=== PATIENT | female | born 1945 | race Caucasian/White ===

== ENCOUNTER → 2017-07-04 | Outpatient (CLI) | payer MEDICARE ==
--- NOTE | 2017-07-06 09:59 | P.ARTDOP ---
Arterial Doppler LOWER EXTREMITY ARTERIAL DOPPLER: DATE OF SERVICE: 07/04/2017 Reason for study: Abnormal lifeline screening. Doppler waveforms: Multiphasic bilaterally throughout. Pulse volume recording: Mild blunting throughout. Pressure gradients: Below the knee bilaterally. Ankle-brachial indices: 0.76 on the right and 0.77 on the left. Toe pressures: 33 on the right, 38 on the left Impression: Normal proximally. Decreased ankle and toe pressures suspicious for infrapopliteal disease. Only of clinical significance if symptoms exist. Fairly typical of diabetic disease. Recommend close follow-up on foot care..
== END | disposition home or self-care (01) ==
LOC: RADUSWWP 12:53
PROVIDERS: ATTEND Family Medicine
DX: R93.6 Abnormal findings on diagnostic imaging of limbs (principal)
CPT/HCPCS: 93923

== ENCOUNTER → 2017-08-31 | Outpatient (CLI) | payer MEDICARE ==
--- NOTE | 2017-09-01 07:37 | XR ---
EXAMINATION TYPE: XR knee complete LT DATE OF EXAM: 08/31/2017 CLINICAL HISTORY: Left knee pain for one week with no known injury TECHNIQUE: Three views of the left knee are obtained. COMPARISON: None. FINDINGS: There is no acute fracture/dislocation evident in left knee [place] bone or hardware as the re is a total left knee arthroplasty noted with minimal heterotopic ossification posteriorly. No per iprosthetic lucency is seen. The tri-compartment joint spaces appear within normal limits. The overl ju[place]ino soft tissue appears unremarkable. Mild atherosclerosis is incidentally noted. IMPRESSION: There is no acute fracture or dislocation in the left knee.
--- NOTE | 2017-09-01 07:58 | XR ---
EXAMINATION TYPE: XR lumbosacral spine min 4V DATE OF EXAM: 08/31/2017 CLINICAL HISTORY: Pain for one week with no known injury TECHNIQUE: Frontal, lateral, and oblique images of the lumbar spine are obtained. COMPARISON: None FINDINGS: There are 5 lumbar type vertebral bodies identified. The lumbar spine shows satisfactory vertebral body heights. There are moderate multilevel degenerative changes of the lumbar spine displa yed as endplate sclerosis, Schmorl's nodes, anterior osteophytes, intervertebral disc space narrowing and facet arthropathy. There is very mild retrolisthesis of L1 on L2. Remainder of the alignment of the lumbar spine is maintained. The oblique images demonstrate multilevel radiographic neural foramin al narrowing at least moderate at L2-L4 bilaterally. Moderate atherosclerosis of the abdominal aorta is noted. The overlying soft tissue appears unremarkable. Possible right renal calculi versus calcifi cations within bowel are seen within the right upper quadrant measuring 2 mm, 4 mm, and 9 mm. IMPRESSION: 1. No acute fracture is seen in the lumbar spine. 2. Moderate multilevel degenerative changes of the thoracic spine resulting in multilevel neural fora efraín narrowing as described above. Additional retrolisthesis of L1 on L2 is likely on a degenerative basis. 3. Possible right-sided nephrolithiasis.
== END | disposition home or self-care (01) ==
LOC: RADXRYALE 15:57
PROVIDERS: ATTEND Physician Assistant Medical
DX: M99.73 Connective tissue and disc stenosis of intervertebral foramina of lumbar region (principal); M43.16 Spondylolisthesis, lumbar region; M25.562 Pain in left knee
CPT/HCPCS: 72110

== ENCOUNTER 2017-09-01 10:44 | Emergency (ER) | payer MEDICARE ==
[2017-09-01 10:51] VITALS: RESP 18
--- NOTE | 2017-09-01 12:06 | ED ---
Lower Extremity Injury HPI - General Chief Complaint: Extremity Injury, Lower Stated Complaint: LEFT LEG PAIN Time Seen by Provider: 09/01/17 10:55 Source: patient, RN notes reviewed Mode of arrival: wheelchair Limitations: no limitations - History of Present Illness Initial Comments: This is a 72-year-old female presents emergency Department chief complaint of left leg pain. She states has been present since last week has seen her primary care physician and 2 separate occasions and which she initially was given [place] 5/325 and then up to 10/325. Patient states that she was also given a shot of steroids, oral steroids. She states that the pain starts from her left hip region and rates only down. She states worst pain seems to be from her knee down. She has had x-rays of her left knee, hip region which were unremarkable. Patient denies any history of DVT denies any leg swelling, leg discoloration. Patient states that nothing seems to make the pain feel better states that certain movements do make the pain worse. Patient denies any bowel bladder incontinence or retention. Denies any abdominal pain - Related Data Home Medications Medication Instructions Recorded Confirmed Aspirin EC [Ecotrin Low Dose] 81 mg PO DAILY 09/01/17 09/01/17 Calcium Carbonate [Calcium] 600 mg PO BID 09/01/17 09/01/17 Cholecalciferol [Vitamin D3] 1,000 unit PO DAILY 09/01/17 09/01/17 Cyanocobalamin (Vitamin B-12) 1,000 mcg PO DAILY 09/01/17 09/01/17 [Vitamin B-12] Fish Oil/Dha/Epa [Fish Oil 1,200 1 cap PO BID 09/01/17 09/01/17 mg Fish Oil] HYDROcodone/APAP 10-325MG [[place] 1 tab PO TID PRN 09/01/17 09/01/17 10-325] Hydrochlorothiazide [Hydrodiuril] 25 mg PO DAILY 09/01/17 09/01/17 Lisinopril [Zestril] 20 mg PO BID 09/01/17 09/01/17 Melatonin 10 mg PO HS 09/01/17 09/01/17 Multivit-Min/FA/Lycopen/Lutein 1 tab PO DAILY 09/01/17 09/01/17 [Centrum Silver Tablet] Pioglitazone [Actos] 15 mg PO DAILY 09/01/17 09/01/17 Vitamin E 1,000 unit PO DAILY 09/01/17 09/01/17 glipiZIDE [Glucotrol XL] 10 mg PO BID 09/01/17 09/01/17 predniSONE See Taper PO DAILY 09/01/17 09/01/17 Previous Rx's Medication Instructions Recorded Cyclobenzaprine [Flexeril] 10 mg PO TID PRN #15 tab 09/01/17 Allergies Allergy/AdvReac Type Severity Reaction Status Date / Time No Known Allergies Allergy Verified 09/01/17 11:03 Review of Systems ROS Statement: Those systems with pertinent positive or pertinent negative responses have been documented in the HPI. ROS Other: All systems not noted in ROS Statement are negative. Past Medical History Past Medical History: Diabetes Mellitus, Hypertension History of Any Multi-Drug Resistant Organisms: None Reported Past Surgical History: Orthopedic Surgery Past Psychological History: No Psychological Hx Reported Smoking Status: Never smoker Past Alcohol Use History: None Reported Past Drug Use History: None Reported General Exam Limitations: no limitations General appearance: alert, in no apparent distress Neck exam: Present: normal inspection, full ROM. Absent: tenderness, meningismus, lymphadenopathy Respiratory exam: Present: normal lung sounds bilaterally. Absent: respiratory distress, wheezes, rales, rhonchi, stridor Cardiovascular Exam: Present: regular rate, normal rhythm, normal heart sounds. Absent: systolic murmur, diastolic murmur, rubs, gallop, clicks GI/Abdominal exam: Present: soft, normal bowel sounds. Absent: distended, tenderness, guarding, rebound, rigid Extremities exam: Present: other (Lower extremity pulses equal bilaterally 2+, there is no swelling no erythema no discoloration lower extremities equal warmth there is no pain with range of motion of left ankle, left knee and left hip. Patient has pain when she goes from a laying to sitting position she feels pain towards her left thigh, left hip region) Back exam: Present: normal inspection, full ROM. Absent: tenderness Neurological exam: Present: reflexes normal. Absent: motor sensory deficit Skin exam: Present: warm, dry, intact, normal color. Absent: rash Course Vital Signs 09/01/17 10:50 Temperature 98.2 F Pulse Rate 96 Respiratory 18 Rate Blood Pressure 131/73 O2 Sat by Pulse 98 Oximetry Medical Decision Making - Medical Decision Making 72-year-old female presented emergency department for left leg pain. Patient has lumbar radiculopathy type symptoms. Patient had CT of her lumbar spine shows severe spinal stenosis, discoloration. Patient does not have any bowel, bladder incontinence or retention. Patient will follow-up with on-call orthopedic surgeon Dr. Tao. Patient currently has [place] . Patient we given a muscle relaxer. Patient also has steroids at home. Disposition Clinical Impression: Lumbar radiculopathy, Spinal stenosis of lumbar region, Lumbar disc herniation Disposition: HOME SELF-CARE Condition: Stable Instructions: Lumbar Spinal Stenosis (ED), Lumbar Radiculopathy (ED) Additional Instructions: Please return to the Emergency Department if symptoms worsen or any other concerns. Prescriptions: Cyclobenzaprine [Flexeril] 10 mg PO TID PRN #15 tab PRN Reason: Muscle Spasm Is patient prescribed a controlled substance at d/c from ED?: No Referrals: Mykel Marin DO [Primary Care Provider] - 1-2 days Sam Tao DO [Doctor of Osteopathic Medicine] - 1-2 days Time of Disposition: 12:50
--- NOTE | 2017-09-01 12:16 | US ---
EXAMINATION TYPE: US venous doppler duplex LE LT DATE OF EXAM: 09/01/2017 11:16 AM COMPARISON: NONE CLINICAL HISTORY: Pain. Pt states left leg/hip pain post steroid injection SIDE PERFORMED: Left TECHNIQUE: The lower extremity deep venous system is examined utilizing real time linear array sonog jerry with graded compression, doppler sonography and color-flow sonography. VESSELS IMAGED: External Iliac Vein (EI) Common Femoral Vein Deep Femoral Vein Greater Saphenous Vein * Femoral Vein Popliteal Vein Small Saphenous Vein * Proximal Calf Veins (* superficial vessels) Large pt body habitus, somewhat difficult exam Left Leg: Negative for DVT IMPRESSION: 1. No diagnostic evidence of DVT as visualized.
--- NOTE | 2017-09-01 12:20 | CT ---
EXAMINATION TYPE: CT lumbar spine wo con DATE OF EXAM: 09/01/2017 11:47 AM COMPARISON: NONE HISTORY: Left leg pain CT DLP: 1916 mGycm Automated exposure control for dose reduction was used. Unenhanced CT of the lumbar spine was performed. Bone and soft tissue window settings are submitted as well as coronal and sagittal reconstructions. FINDINGS: Vertebral bodies maintain normal vertebral body heights and alignment. Posterior osteophyte s project from the L1-L2 and L2-L3 vertebrae into the spinal canal. Multilevel anterior osteophytes a re also seen. Schmorl's node is present of the superior endplate of L3. Multilevel endplate sclerosis and facet arthropathy as well as intervertebral disc space narrowing are seen. There is moderate ath erosclerosis of the abdominal aorta and its branches. L1-L2: There is a broad-based disc bulge and minimal facet arthropathy with posterior disc osteophyte complex creating moderate spinal canal stenosis and mild bilateral neural foraminal narrowing. L2-L3: There is a protuberant posterior osteophytes in combination with a central disc herniation mary jane t create moderate to severe spinal canal stenosis and mild to moderate bilateral neural foraminal anastacia rowing. L3-L4: There is a broad-based disc bulge and facet arthropathy that create mild bilateral neural fora efraín narrowing and mild spinal canal stenosis. L4-L5: There is a broad-based disc bulge, facet arthropathy and ligamentum flavum hypertrophy that cr eate moderate spinal canal stenosis and moderate bilateral neural foraminal narrowing. L5-S1: There is a broad-based disc bulge, facet arthropathy and ligamentum flavum buckling that creat e mild bilateral neural foraminal narrowing without significant spinal canal stenosis. Additionally t here is suspicion for a left paracentral disc herniation although this would be better evaluated with MRI. IMPRESSION: 1. No evidence of vertebral body height loss or malalignment of the lumbar spine. No evidence of acut e fracture. 2. Multilevel degenerative disc disease resulting in severe spinal canal stenosis at L2-L3, mild spin al canal stenosis at L3-L4, and moderate spinal canal stenosis at L4-L5 as well as at L1-L2. Multilev el variable degree neural foraminal narrowing is also seen as described above. 3. Central disc herniation at L2-L3 and suspected left paracentral disc herniation at L5-S1 that woul d be better characterized with MRI.
[2017-09-01] MEDS ORDERED: HYDROmorphone 0.5 MG/0.5 ML SYRINGE IM STA (12:47)
[2017-09-01 13:45] VITALS: BP 140/73; PULSE 89; TEMP 98.2
== END 2017-09-01 13:43 | disposition home or self-care (01) ==
LOC: EC 10:44
DX: M48.061 Spinal stenosis, lumbar region without neurogenic claudication (principal); M79.605 Pain in left leg; M51.16 Intervertebral disc disorders with radiculopathy, lumbar region; E11.9 Type 2 diabetes mellitus without complications; I10 Essential (primary) hypertension; Z79.82 Long term (current) use of aspirin; Z79.52 Long term (current) use of systemic steroids; Z79.84 Long term (current) use of oral hypoglycemic drugs; Z79.899 Other long term (current) drug therapy
CPT/HCPCS: 99283 ×2; 96372 ×2; 93971; 72131; J1170

== ENCOUNTER 2019-01-28 10:53 | Emergency (ER) | payer MEDICARE, OTHER ==
[2019-01-28 11:11] VITALS: BP 134/66; PULSE 109; RESP 18; TEMP 98.8
[2019-01-28] MEDS ORDERED: KETOROLAC 30 MG/ML 1 ML VIAL IM STA (11:42)
--- NOTE | 2019-01-28 11:49 | ED ---
Back Pain HPI - General Chief Complaint: Back Pain/Injury Stated Complaint: sciatic nerve pain Time Seen by Provider: 01/28/19 11:11 Source: patient Limitations: no limitations - History of Present Illness Initial Comments: Patient is a 74-year-old female, with past medical history of hypertension and diabetes, presenting to the emergency Department with complaints of right sided sciatica-type symptoms times one week. Patient states she has had sciatica in the past on the left side and states this feels the same. Patient denies any injuries or trauma to her low back or leg. Patient states this started approximately one week ago after she was pushing a coffee table. Patient states she did go to her PCP who gave her [place]'s for pain relief over they are not working. Patient states her pain has been increasing and she is having trouble sleeping. Patient is also tried heat to the area and massage without relief of symptoms. Patient's describes the pain as starting in her right buttocks and traveling down to her leg. Patient states at times she feels pain into her right toes. Patient denies any fever, chills, saddle paresthesias, urinary incontinence. Patient has no other complaints at this time. Upon arrival to the ER, vital signs are stable. - Related Data Home Medications Medication Instructions Recorded Confirmed Aspirin EC [Ecotrin Low Dose] 81 mg PO DAILY 09/01/17 09/01/17 Calcium Carbonate [Calcium] 600 mg PO BID 09/01/17 09/01/17 Cholecalciferol [Vitamin D3] 1,000 unit PO DAILY 09/01/17 09/01/17 Cyanocobalamin (Vitamin B-12) 1,000 mcg PO DAILY 09/01/17 09/01/17 [Vitamin B-12] Fish Oil/Dha/Epa [Fish Oil 1,200 1 cap PO BID 09/01/17 09/01/17 mg Fish Oil] HYDROcodone/APAP 10-325MG [[place] 1 tab PO TID PRN 09/01/17 09/01/17 10-325] Hydrochlorothiazide [Hydrodiuril] 25 mg PO DAILY 09/01/17 09/01/17 Lisinopril [Zestril] 20 mg PO BID 09/01/17 09/01/17 Melatonin 10 mg PO HS 09/01/17 09/01/17 Multivit-Min/FA/Lycopen/Lutein 1 tab PO DAILY 09/01/17 09/01/17 [Centrum Silver Tablet] Pioglitazone [Actos] 15 mg PO DAILY 09/01/17 09/01/17 Vitamin E 1,000 unit PO DAILY 09/01/17 09/01/17 glipiZIDE [Glucotrol XL] 10 mg PO BID 09/01/17 09/01/17 predniSONE See Taper PO DAILY 09/01/17 09/01/17 Previous Rx's Medication Instructions Recorded Cyclobenzaprine [Flexeril] 10 mg PO TID PRN #15 tab 09/01/17 Cyclobenzaprine [Flexeril] 5 mg PO BID #10 tablet 01/28/19 methylPREDNISolone [Medrol Dose 4 mg PO DIRECTED #1 pack 01/28/19 Pack] Allergies Allergy/AdvReac Type Severity Reaction Status Date / Time No Known Allergies Allergy Verified 09/01/17 11:03 Review of Systems ROS Statement: Those systems with pertinent positive or pertinent negative responses have been documented in the HPI. ROS Other: All systems not noted in ROS Statement are negative. Past Medical History Past Medical History: Diabetes Mellitus, Hypertension History of Any Multi-Drug Resistant Organisms: None Reported Past Surgical History: Orthopedic Surgery Past Psychological History: No Psychological Hx Reported Smoking Status: Never smoker Past Alcohol Use History: None Reported Past Drug Use History: None Reported General Exam - General Exam Comments Initial Comments: GENERAL: Well-appearing, well-nourished and in no acute distress, but appears uncomfortable. HEAD: Atraumatic, normocephalic. EYES: Pupils equal round and reactive to light, extraocular movements intact, sclera anicteric, conjunctiva are normal. ENT: Moist mucous membranes. NECK: Normal range of motion, supple without lymphadenopathy or JVD. LUNGS: Breath sounds clear to auscultation bilaterally and equal. No wheezes rales or rhonchi. HEART: Regular rate and rhythm without murmurs, rubs or gallops. ABDOMEN: Soft, nontender, normoactive bowel sounds. No guarding, no rebound. No masses appreciated. EXTREMITIES: Pain with palpation in the right gluteal, sciatic nerve area, increase in symptoms when palpated. Patient has positive straight leg rate test. Normal range of motion of the right hip and trunk. Sensation is equal and bilateral. Patient has 5 out of 5 strength to lower extremities. NEUROLOGICAL: Cranial nerves II through XII grossly intact. Normal speech. PSYCH: Normal mood, normal affect. SKIN: Warm, Dry, normal turgor, no rashes or lesions noted. Limitations: no limitations Course Vital Signs 01/28/19 11:09 Temperature 98.8 F Pulse Rate 109 H Respiratory 18 Rate Blood Pressure 134/66 O2 Sat by Pulse 98 Oximetry Medical Decision Making - Medical Decision Making Patient is a 74-year-old female presenting with right-sided sciatica for one week. Patient denies any injuries or trauma. Patient states she has had this on the left side before and this feels similar. Patient has been taking [place]'s for pain relief however they've not been helping. Patient will be given pain shot of Toradol today be started on steroids as well as a small dose of a muscle relaxer to help with symptoms. Patient will continue with heat to the area as well as gentle massage. Patient is in agreement with this plan of care and is stable for discharge at this time. Return parameters were discussed with the patient she verbalized understanding. Patient will follow up with PCP this week if symptoms persist. Case discussed with Dr. Deleon. Disposition Clinical Impression: Right sided sciatica Disposition: HOME SELF-CARE Condition: Stable Instructions (If sedation given, give patient instructions): Sciatica (ED) Additional Instructions: Please return to the Emergency Department if symptoms worsen or any other daljit rns. Take steroids and muscle relaxer as prescribed. Continue with heat and gentle massage to the area. May continue with [place] or Tylenol for pain relief. Follow-up with PCP next week if symptoms persist. Prescriptions: Cyclobenzaprine [Flexeril] 5 mg PO BID #10 tablet methylPREDNISolone [Medrol Dose Pack] 4 mg PO DIRECTED #1 pack Is patient prescribed a controlled substance at d/c from ED?: No Referrals: Mykel Marin DO [Primary Care Provider] - 1-2 days
== END 2019-01-28 12:06 | disposition home or self-care (01) ==
LOC: EC 10:53
DX: M54.31 Sciatica, right side (principal); E11.9 Type 2 diabetes mellitus without complications; I10 Essential (primary) hypertension; Z79.52 Long term (current) use of systemic steroids; Z79.82 Long term (current) use of aspirin; Z79.84 Long term (current) use of oral hypoglycemic drugs; Z79.899 Other long term (current) drug therapy
CPT/HCPCS: 99283; 96372; J1885

== ENCOUNTER 2020-01-05 19:42 | Inpatient (IN) | payer MEDICARE, OTHER ==
--- NOTE | 2020-01-05 20:13 | ED ---
Arrhythmia/Palpitations HPI - General Chief Complaint: Arrhythmia/Palpitations Stated Complaint: sob, heart palpitations Time Seen by Provider: 01/05/20 19:54 Source: patient, family, RN notes reviewed Mode of arrival: wheelchair Limitations: no limitations - History of Present Illness Initial Comments: This is a 74-year-old female with no prior history of heart disease that she is aware of who states she had the onset this morning at about 7:00 of a racing heart rate was resolved quickly she has sec so later today and then around 6:30 PM tonight had another episode which is persistent. She has slight shortness of breath no chest pain fevers chills sweats no recent cold or flu symptoms no recent travel no known medication with history of thyroid disease no other complaints or modifying factors MD Complaint: rapid heart beat, "heart racing" - Related Data Home Medications Medication Instructions Recorded Confirmed Aspirin EC [Ecotrin Low Dose] 81 mg PO DAILY 09/01/17 09/01/17 Calcium Carbonate [Calcium] 600 mg PO BID 09/01/17 09/01/17 Cholecalciferol [Vitamin D3] 1,000 unit PO DAILY 09/01/17 09/01/17 Cyanocobalamin (Vitamin B-12) 1,000 mcg PO DAILY 09/01/17 09/01/17 [Vitamin B-12] Fish Oil/Dha/Epa [Fish Oil 1,200 1 cap PO BID 09/01/17 09/01/17 mg Fish Oil] HYDROcodone/APAP 10-325MG [[place] 1 tab PO TID PRN 09/01/17 09/01/17 10-325] Melatonin 10 mg PO HS 09/01/17 09/01/17 Multivit-Min/FA/Lycopen/Lutein 1 tab PO DAILY 09/01/17 09/01/17 [Centrum Silver Tablet] Pioglitazone [Actos] 15 mg PO DAILY 09/01/17 09/01/17 Vitamin E 1,000 unit PO DAILY 09/01/17 09/01/17 glipiZIDE [Glucotrol XL] 10 mg PO BID 09/01/17 09/01/17 hydroCHLOROthiazide [Hydrodiuril] 25 mg PO DAILY 09/01/17 09/01/17 lisinopriL [Zestril] 20 mg PO BID 06/21/18 06/21/18 predniSONE See Taper PO DAILY 09/01/17 09/01/17 Previous Rx's Medication Instructions Recorded Cyclobenzaprine [Flexeril] 10 mg PO TID PRN #15 tab 09/01/17 Cyclobenzaprine [Flexeril] 5 mg PO BID #10 tablet 01/28/19 methylPREDNISolone [Medrol Dose 4 mg PO DIRECTED #1 pack 01/28/19 Pack] Allergies Allergy/AdvReac Type Severity Reaction Status Date / Time No Known Allergies Allergy Verified 01/05/20 19:48 Review of Systems ROS Statement: Those systems with pertinent positive or pertinent negative responses have been documented in the HPI. ROS Other: All systems not noted in ROS Statement are negative. Past Medical History Past Medical History: Diabetes Mellitus, Hypertension History of Any Multi-Drug Resistant Organisms: None Reported Past Surgical History: Orthopedic Surgery Past Psychological History: No Psychological Hx Reported Smoking Status: Never smoker Past Alcohol Use History: None Reported Past Drug Use History: None Reported General Exam - General Exam Comments Initial Comments: This is a well-developed well-nourished awake alert oriented 3 female Limitations: no limitations General appearance: alert, anxious Head exam: Present: atraumatic, normocephalic, normal inspection Eye exam: Present: normal appearance, PERRL, EOMI. Absent: scleral icterus, conjunctival injection, periorbital swelling ENT exam: Present: normal exam, mucous membranes moist Neck exam: Present: normal inspection, full ROM, other (No stridor JVD or bruits). Absent: tenderness, meningismus, lymphadenopathy Respiratory exam: Present: normal lung sounds bilaterally. Absent: respiratory distress, wheezes, rales, rhonchi, stridor Cardiovascular Exam: Present: normal rhythm, tachycardia, normal heart sounds. Absent: systolic murmur, diastolic murmur, rubs, gallop, clicks GI/Abdominal exam: Present: soft, normal bowel sounds. Absent: distended, tenderness, guarding, rebound, rigid Extremities exam: Present: normal inspection, full ROM, normal capillary refill. Absent: tenderness, pedal edema, joint swelling, calf tenderness Back exam: Present: normal inspection Neurological exam: Present: alert, oriented X3, CN II-XII intact Psychiatric exam: Present: normal affect, normal mood Skin exam: Present: warm, dry, intact, normal color. Absent: rash Course Vital Signs 01/05/20 19:44 Temperature 97.9 F Pulse Rate 108 H Respiratory 20 Rate Blood Pressure 175/64 O2 Sat by Pulse 99 Oximetry - Reevaluation(s) Reevaluation #1: 01/05/20 20:37 The patient was instructed to perform a vagal maneuver this was successful and improving her heart rate down to approximately 110 from 165 Reevaluation #2: 01/05/20 20:52 After the vagal episode repeat EKG showed a sinus rhythm a 93. Interval 194 QRS 80 QT since QTC 332/412 evidence of LVH possible left atrial enlargement Reevaluation #3: 01/05/20 20:52 Reevaluation patient revealed that she did return to supraventricular tachycardia another vagal maneuver was attempted. This did not accomplish the slowing of the heart. Patient was then given 6 mg of adenosine. This did change the rhythm to a sinus rhythm with a beat of about 110 however within about a minute the patient return to SVT with a heart rate in the 160s. Patient will be started on a Cardizem drip. Reevaluation #4: 01/05/20 21:08 The patient did spontaneously resolve into sinus rhythm. She'll be started on a Cardizem drip. EKG Findings - EKG Results: EKG: interpreted by ERMD (Evidence of supraventricular tachycardia with fusion complexes artifact QRS 98 QT /QTC 260/430. Nonspecific ST configuration incomplete right bundle-branch block.) Medical Decision Making - Lab Data Result diagrams: 01/05/20 20:06 01/05/20 20:06 Lab Results 01/05/20 01/05/20 01/05/20 Range/Units 20:06 20:06 20:06 WBC 10.5 (3.8-10.6) k/uL RBC 4.54 (3.80-5.40) m/uL Hgb 13.5 (11.4-16.0) gm/dL Hct 41.9 (34.0-46.0) % MCV 92.2 (80.0-100.0) fL MCH 29.8 (25.0-35.0) pg MCHC 32.3 (31.0-37.0) g/dL RDW 13.0 (11.5-15.5) % Plt Count 209 (150-450) k/uL Neutrophils % 80 % Lymphocytes % 12 % Monocytes % 6 % Eosinophils % 0 % Basophils % 0 % Neutrophils # 8.5 H (1.3-7.7) k/uL Lymphocytes # 1.2 (1.0-4.8) k/uL Monocytes # 0.7 (0-1.0) k/uL Eosinophils # 0.0 (0-0.7) k/uL Basophils # 0.0 (0-0.2) k/uL PT 9.6 (9.0-12.0) sec INR 0.9 (<1.2) APTT 18.7 L (22.0-30.0) sec D-Dimer 0.36 (<0.60) mg/L FEU Sodium 138 (137-145) mmol/L Potassium 4.7 (3.5-5.1) mmol/L Chloride 103 (98-107) mmol/L Carbon Dioxide 27 (22-30) mmol/L Anion Gap 8 mmol/L BUN 44 H (7-17) mg/dL Creatinine 1.38 H (0.52-1.04) mg/dL Est GFR (CKD-EPI)AfAm 43 (>60 ml/min/1.73 sqM) Est GFR (CKD-EPI)NonAf 37 (>60 ml/min/1.73 sqM) Glucose 335 H (74-99) mg/dL Calcium 9.6 (8.4-10.2) mg/dL Magnesium 1.8 (1.6-2.3) mg/dL Total Bilirubin 0.6 (0.2-1.3) mg/dL AST 23 (14-36) U/L ALT 24 (4-34) U/L Alkaline Phosphatase 107 (38-126) U/L Creatine Kinase 35 (30-135) U/L Total Protein 7.0 (6.3-8.2) g/dL Albumin 4.3 (3.5-5.0) g/dL TSH 0.605 (0.465-4.680) mIU/L Critical Care Time Critical Care Time: Yes Total Critical Care Time: 37 Critical Care Time: 37 minutes of critical care time which includes initial presentation with history physical labs x-rays multiple reevaluation the patient including the attempted chemical conversion with Cardizem. Multiple discussions the patient family discuss with the admitting service admission orders and documentation of the above Disposition Clinical Impression: Paroxysmal supraventricular tachycardia, Hypomagnesemia syndrome Disposition: ADMITTED IP TO THIS HOSP Condition: Fair Referrals: Mykel Marin DO [Primary Care Provider] - 1-2 days
[2020-01-05 20:18] LABS: Basophils % (A) 0 %; Eosinophils % (A) 0 %; HCT 41.9 % (34.0-46.0); HGB 13.5 gm/dL (11.4-16.0); Lymphocytes # (A) 1.2 k/uL (1.0-4.8); Lymphocytes % (A) 12 %; MCH 29.8 pg (25.0-35.0); MCHC 32.3 g/dL (31.0-37.0); MCV 92.2 fL (80.0-100.0); Mean Platelet Volume 7.7; Monocytes # (A) 0.7 k/uL (0-1.0); Monocytes % (A) 6 %; Neutrophils # (A) 8.5 k/uL (1.3-7.7); Neutrophils % (A) 80 %; Platelet Count 209 k/uL (150-450); RBC 4.54 m/uL (3.80-5.40); WBC 10.5 k/uL (3.8-10.6)
[2020-01-05 20:30] LABS: Albumin 4.3 g/dL (3.5-5.0); Calcium 9.6 mg/dL (8.4-10.2); Magnesium 1.8 mg/dL (1.6-2.3); Potassium 4.7 mmol/L (3.5-5.1); Total Bilirubin 0.6 mg/dL (0.2-1.3)
--- NOTE | 2020-01-05 20:40 | XR ---
EXAMINATION TYPE: XR chest 2V DATE OF EXAM: 01/05/2020 COMPARISON: NONE HISTORY: Dysrhythmia TECHNIQUE: 2 views FINDINGS: Heart and mediastinum are within normal limits for age. Lungs are clear. Diaphragm is lara l. Bony thorax is intact. IMPRESSION: No active cardiopulmonary disease.
[2020-01-05] MEDS ORDERED: ADENOSINE 3 MG/ML 2 ML VIAL IVP STA (20:49)
[2020-01-05] MEDS ORDERED: DILTIAZEM DRIP BOLUS FROM BAG 1 MG SOLN IV ONE (20:50)
[2020-01-05] MEDS ORDERED: MAGNESIUM SULFATE-D5W PMX 1 GM in DEXTROSE/WATER 1 100ML.BAG IVPB ONE (20:50)
[2020-01-05] MEDS ORDERED: DILTIAZEM 125 MG in SODIUM CHLORIDE 0.9% 100 ML IV SCH (21:00)
[2020-01-05 21:04] LABS: D-Dimer 0.36 mg/L FEU (<0.60); INR 0.9 (<1.2); Prothrombin Time 9.6 sec (9.0-12.0)
[2020-01-05 21:06] LABS: Partial Thromboplastin Time 18.7 sec (22.0-30.0)
[2020-01-05] MEDS ORDERED: NALOXONE 0.4 MG/ML 1 ML VIAL IV PRN (21:09)
[2020-01-05] MEDS ORDERED: CYCLOBENZAPRINE 10 MG TAB PO PRN (21:12)
[2020-01-05] MEDS ORDERED: HYDROcodone/APAP 10-325MG 1 EACH TAB PO PRN (21:12)
[2020-01-05 21:15] VITALS: RESP 18
[2020-01-05] MEDS ORDERED: SODIUM CHLORIDE 0.9% 1,000 ML IV SCH (21:15)
[2020-01-06 06:24] LABS: Glucose,Whole Blood 56 mg/dL (75-99)
[2020-01-06] MEDS ORDERED: DEXTROSE 50% SYRINGE 50 ML IVP ONE (06:24)
[2020-01-06 06:50] LABS: Glucose,Whole Blood 190 mg/dL (75-99)
[2020-01-06] MEDS ORDERED: glipiZIDE 10 MG TAB PO SCH (07:30)
[2020-01-06] MEDS ORDERED: CALCIUM CARB-VIT D 500MG-200UN 1 EACH TAB PO SCH (07:30)
[2020-01-06] MEDS ORDERED: lisinopriL 20 MG TAB PO SCH (09:00)
[2020-01-06] MEDS ORDERED: PIOGLITAZONE 15 MG TAB PO SCH (09:00)
[2020-01-06] MEDS ORDERED: CYANOCOBALAMIN 500 MCG TAB PO SCH (09:00)
[2020-01-06] MEDS ORDERED: NON FORMULARY DRUG (Fish Oil/Dha/Epa [Fish Oil 1,200 Mg Fish Oil] 1 EACH Capsule) PO SCH (09:00)
[2020-01-06] MEDS ORDERED: MULTIVITAMINS, THERA 1 EACH TAB PO SCH (09:00)
[2020-01-06] MEDS ORDERED: VITAMIN E (DL,TOCOPHERYL ACET) 400 UNIT CAP PO SCH (09:00)
[2020-01-06] MEDS ORDERED: ASPIRIN 81 MG PO SCH (09:00)
[2020-01-06] MEDS ORDERED: hydroCHLOROthiazide 25 MG TAB PO SCH (09:00)
[2020-01-06] MEDS ORDERED: CHOLECALCIFEROL 1,000 UNIT TAB PO SCH (09:00)
[2020-01-06] MEDS ORDERED: VERAPAMIL 80 MG TAB PO SCH (10:00)
[2020-01-06 10:08] VITALS: TEMP 97.6
--- NOTE | 2020-01-06 10:56 | P.CRDCN ---
History of Present Illness Consult date: 01/06/20 Reason for Consult (text): "Racing heart" and palpitations Chief complaint: Racing heart / paplitations History of present illness: HISTORY OF PRESENT ILLNESS AND PLAN: This is a 75-year-old female with history of obesity, bilateral knee replacement, osteoarthritis of bilateral hips with steroid injections, DM 2, hypertension, hyperlipidemia and recent complaints of racing heart/palpitations. Patient examined this a.m. in no acute distress and is completely alert and oriented. Patient states yesterday morning she began to feel racing heart/palpitations and it persisted to the evening hours. Patient has no current complaints of chest pain, chest pressure or shortness of breath. No lower extremity edema. Patient has never followed with cardiology historically. EKG in ER shows SVT with heart rate of 165. Patient currently sinus rhythm, heart rate 66. VSS, 98% on RA. Afebrile. Troponin's negative 3. Glucose levels 335, Pt currently on oral steroids for OA of the hips. Magnesium 1.8, replaced. TSH borderline elevation at 0.605 and pt takes no thyroid supplementation. No smoking hx. Pt given adenosine and started on Cardizem IV @ 5ml in ER. Pt follows with Dr. Em. SIGNIFICANT PAST MEDICAL HISTORY: Obesity, bilateral knee replacement, osteoarthritis of bilateral hips with steroid injections, DM 2, hypertension, hyperlipidemia and recent complaints of racing heart/palpitations. PAST SURGICAL HISTORY: See list. EKG = SVT, HR 165. Currently SR, HR 66 Troponins negative x 3 SIGNIFICANT LABORATORY VALUES: Mag 1.8. Glucose 335. TSH 0.605. BUN 44 CR 1.38 Chest x-ray 01/05/20 = No acute process. Most recent echo = None recently Most recent stress testing = none recently REVIEW OF SYSTEMS: CONSTITUTIONAL: Denies fever. Denies chills. EYES: Denies blurred vision. Denies blurred vision or vision changes. Denies eye pain. EARS, NOSE, MOUTH & THROAT: Denies headache. Denies sore throat. Denies ear pain Denies hemoptysis. CARDIOVASCULAR: Denies chest pain. Denies shortness of breath. Denies orthopnea. Denies PND. Complains of "racing heart" with associated palpitations. RESPIRATORY: Denies cough. Denies shortness of breath. GASTROINTESTINAL: Denies abdominal pain or distention. Denies diarrhea. Denies constipation. Denies nausea. Denies vomiting. MUSCULOSKELETAL: Complains of bilateral hip myalgias. INTEGUMENTARY: Denies pruitis. Denies rash. ENDOCRINE: Denies fatigue. Denies weight change. Denies polydipsia. Denies polyurina Denies heat/cold intolerance. GENITOURINARY: Denies burning, hematuria or urgency with micturation. HEMATOLOGIC: Denies history of anemia. Denies bleeding. NEUROLOGIC: Denies numbness. Denies tingling. Denies weakness. PSYCHIATRIC: Complains of anxiety. Denies depression PHYSICAL EXAM: GENERAL: Obese. Well developed, in no acute distress. HEENT: Head is atraumatic, normocephalic. Pupils are equal, round. Extra ocular movements intact. Mucous membranes moist. Neck supple. No JVD. No carotid bruit. No thyromegaly. LUNGS: Clear to auscultation. No wheezes, rales or rhonchi. No chest wall tenderness on palpation or with deep breathing. HEART: Regular rate and rhythm, no rubs or gallops. S1 and S2 heard. II/ systolic murmur at the base. ABDOMEN: Abdominal exam, WNL. Bowel sounds x4 quads. Soft, non-tender, without masses, organomegaly, or abdominal aorta enlargement. EXTREMITIES/VASCULAR: Extremities have easily palpable radial, femoral, dorsalis pedis and posterior tibial pulses. No cyanosis, calf tenderness. No BLE edema. NEUROLOGIC: Patient is awake, alert and oriented x3. No focal neurologic abnormalities. FINAL IMPRESSION: 1. Paroxysmal SVT 2. Possible underlying CAD 3. Hypertension 4. Hyperlipidemia 5. DM II PLAN: STOP Cardizem IV. START Verapamil 80 mg every 12 hours. Hearth healthy diet. OK from a cardiology to discharge pt later this afternoon after starting Verapamil. Pt to follow-up visit, echocardiogram and outpatient stress testing within the next [address] JUAN MIGUEL Oreilly. OK for DC this afternoon. Nurse Practitioner note has been reviewed by the Physician. Signing provider agrees with the documented findings, assessment and plan of care. Past Medical History Past Medical History: Diabetes Mellitus, Hypertension History of Any Multi-Drug Resistant Organisms: None Reported Past Surgical History: Orthopedic Surgery Past Psychological History: No Psychological Hx Reported Smoking Status: Never smoker Past Alcohol Use History: None Reported Past Drug Use History: None Reported Medications and Allergies Home Medications Medication Instructions Recorded Confirmed Type Aspirin EC [Ecotrin Low Dose] 81 mg PO DAILY 09/01/17 01/05/20 History Cholecalciferol [Vitamin D3] 1,000 unit PO DAILY 09/01/17 01/05/20 History HYDROcodone/APAP 10-325MG [[place] 1 tab PO BID PRN 09/01/17 01/05/20 History 10-325] Melatonin 10 mg PO HS 09/01/17 01/05/20 History glipiZIDE [Glucotrol XL] 10 mg PO DAILY 09/01/17 01/05/20 History hydroCHLOROthiazide [Hydrodiuril] 25 mg PO DAILY 09/01/17 01/05/20 History lisinopriL [Zestril] 20 mg PO BID 09/01/17 01/05/20 History predniSONE See Taper PO DAILY 09/01/17 01/05/20 History Atorvastatin [Lipitor] 10 mg PO DAILY 01/05/20 01/05/20 History Gabapentin 300 mg PO HS 01/05/20 01/05/20 History Pioglitazone [Actos] 30 mg PO DAILY 01/05/20 01/05/20 History metFORMIN HCL [Glucophage] 500 mg PO BID 01/05/20 01/05/20 History Allergies Allergy/AdvReac Type Severity Reaction Status Date / Time No Known Allergies Allergy Verified 01/05/20 21:18 Physical Exam Vitals: Vital Signs Temp Pulse Pulse Resp BP BP Pulse Ox 01/06/20 08:00 97.6 F 86 18 128/67 98 01/06/20 04:00 98 F 66 18 148/86 96 01/06/20 00:00 75 18 01/05/20 21:28 98.2 F 75 18 153/88 95 01/05/20 21:14 84 18 159/69 98 01/05/20 19:44 97.9 F 108 H 20 175/64 99 Intake and Output 01/05/20 01/06/20 01/06/20 22:59 06:59 14:59 Intake Total 380 Balance 380 Intake: Intake, IV Titration 140 Amount Diltiazem 125 mg In 40 Sodium Chloride 0.9% 100 ml @ 5 MG/HR 5 mls/hr IV .Q24H [facility] Rx#:[id number] Sodium Chloride 0.9% 1, 100 000 ml @ 20 mls/hr IV . Q24H [facility] Rx#:[id number] Oral 240 Other: # Voids 3 1 Weight 72.575 kg 86.4 kg Results 01/05/20 20:06 01/05/20 20:06 Cardiac Enzymes 01/05/20 01/05/20 01/05/20 Range/Units 20:06 20:06 22:46 AST 23 (14-36) U/L Troponin I 0.014 0.015 (0.000-0.034) ng/mL 01/06/20 Range/Units 02:05 AST (14-36) U/L Troponin I 0.020 (0.000-0.034) ng/mL Coagulation 01/05/20 Range/Units 20:06 PT 9.6 (9.0-12.0) sec APTT 18.7 L (22.0-30.0) sec CBC 01/05/20 Range/Units 20:06 WBC 10.5 (3.8-10.6) k/uL RBC 4.54 (3.80-5.40) m/uL Hgb 13.5 (11.4-16.0) gm/dL Hct 41.9 (34.0-46.0) % Plt Count 209 (150-450) k/uL Comprehensive Metabolic Panel 01/05/20 Range/Units 20:06 Sodium 138 (137-145) mmol/L Potassium 4.7 (3.5-5.1) mmol/L Chloride 103 (98-107) mmol/L Carbon Dioxide 27 (22-30) mmol/L BUN 44 H (7-17) mg/dL Creatinine 1.38 H (0.52-1.04) mg/dL Glucose 335 H (74-99) mg/dL Calcium 9.6 (8.4-10.2) mg/dL AST 23 (14-36) U/L ALT 24 (4-34) U/L Alkaline Phosphatase 107 (38-126) U/L Total Protein 7.0 (6.3-8.2) g/dL Albumin 4.3 (3.5-5.0) g/dL Current Medications Generic Name Dose Route Start Last Admin Trade Name Freq PRN Reason Stop Dose Admin Hydrocodone Bitart/Acetaminophen 1 each 01/05/20 21:12 Hydrocodone/Apap 10-325mg 1 Each Tab PO TID PRN Pain Aspirin 81 mg 01/06/20 09:00 01/06/20 09:36 Aspirin 81 Mg PO 81 mg DAILY [facility] Administration Calcium Carbonate 600 each 01/06/20 07:30 01/06/20 06:33 Calcium Carb-Vit D 500mg-200un 1 Each Tab PO Not Given BID-W/MEALS [facility] Cholecalciferol 1,000 unit 01/06/20 09:00 01/06/20 09:37 Cholecalciferol 1,000 Unit Tab PO 1,000 unit DAILY [facility] Administration Cyanocobalamin 1,000 mcg 01/06/20 09:00 01/06/20 09:37 Cyanocobalamin 500 Mcg Tab PO 1,000 mcg DAILY [facility] Administration Cyclobenzaprine HCl 10 mg 01/05/20 21:12 Cyclobenzaprine 10 Mg Tab PO TID PRN Muscle Spasm Glipizide 10 mg 01/06/20 07:30 01/06/20 06:33 Glipizide 10 Mg Tab PO Not Given AC-BID [facility] Hydrochlorothiazide 25 mg 01/06/20 09:00 01/06/20 09:37 Hydrochlorothiazide 25 Mg Tab PO 25 mg DAILY [facility] Administration Sodium Chloride 1,000 mls @ 20 mls/hr 01/05/20 21:15 01/06/20 00:00 Saline 0.9% IV 20 mls/hr .Q24H [facility] Administration Lisinopril 20 mg 01/06/20 09:00 01/06/20 09:37 Lisinopril 20 Mg Tab PO 20 mg BID [facility] Administration Melatonin 10 mg 01/06/20 21:00 Melatonin 5 Mg Tablet PO HS [facility] Multivitamins 1 each 01/06/20 09:00 01/06/20 09:37 Multivitamins, Thera 1 Each Tab PO 1 each DAILY [facility] Administration Naloxone HCl 0.2 mg 01/05/20 21:09 Naloxone 0.4 Mg/Ml 1 Ml Vial IV Q2M PRN Opioid Reversal Pioglitazone HCl 15 mg 01/06/20 09:00 01/06/20 09:37 Pioglitazone 15 Mg Tab PO 15 mg DAILY [facility] Administration Verapamil HCl 80 mg 01/06/20 10:00 01/06/20 10:11 Verapamil 80 Mg Tab PO 80 mg BID [facility] Administration Vitamin E 800 unit 01/06/20 09:00 01/06/20 09:37 Vitamin E (Dl,Tocopheryl Acet) 400 Unit Cap PO Not Given DAILY [facility] Intake and Output 01/05/20 01/06/20 01/06/20 22:59 06:59 14:59 Intake Total 380 Balance 380 Intake: Intake, IV Titration 140 Amount Diltiazem 125 mg In 40 Sodium Chloride 0.9% 100 ml @ 5 MG/HR 5 mls/hr IV .Q24H [facility] Rx#:[id number] Sodium Chloride 0.9% 1, 100 000 ml @ 20 mls/hr IV . Q24H [facility] Rx#:[id number] Oral 240 Other: # Voids 3 1 Weight 72.575 kg 86.4 kg 01/05/20 20:06 01/05/20 20:06 - EKG Interpretation EKG: normal ST/T EKG Interpretations (text) SVT/ST/SR
[2020-01-06 11:54] LABS: Glucose,Whole Blood 170 mg/dL (75-99)
[2020-01-06 12:24] VITALS: BP 137/61; PULSE 95
--- NOTE | 2020-01-06 12:57 | P.HPIM ---
History of Present Illness 75-year-old the pleasant female came in with complaints of palpitations patient denied any chest pain. Patient is an not in acute respiratory distress and patient is usually started on Cardizem patient is found to be in SVT with heart rate of 170s and patient was is now started on verapamil with heart rate of 90s and patient is continues to do clinically well will be discharged today. Patient has pretty normal TSH. Patient has a creatinine of 1.3 a day denied any dysuria, diarrhea nausea vomiting. Patient doesn't have any fever chills. No evidence of sepsis at this time. Patient appears to have baseline creatinine of around 1.3. When I believe this will improve as her BUN/creatinine ratio is 1.38. Patient the is on hydrochlorothiazide which will be discontinued which will not be beneficial with the this GFR and patient is also on metformin patient discontinued as it is contraindicated in this year for as well. Patient has a d-dimer of 0.36 which is within normal limits and patient will be discharged today with the changes. Review of Systems REVIEW OF SYSTEMS: CONSTITUTIONAL: No fever, no malaise, no fatigue. HEENT: No recent visual problems or hearing problems. Denied any sore throat. CARDIOVASCULAR: No chest pain, orthopnea, PND, no syncope. PULMONARY: No shortness of breath, no cough, no hemoptysis. GASTROINTESTINAL: No diarrhea, no nausea, no vomiting, no abdominal pain. NEUROLOGICAL: No headaches, no weakness, no numbness. HEMATOLOGICAL: Denies any bleeding or petechiae. GENITOURINARY: Denies any burning micturition, frequency, or urgency. MUSCULOSKELETAL/RHEUMATOLOGICAL: Denies any joint pain, swelling, or any muscle pain. ENDOCRINE: Denies any polyuria or polydipsia. The rest of the 14-point review of systems is negative. Past Medical History Past Medical History: Diabetes Mellitus, Hypertension History of Any Multi-Drug Resistant Organisms: None Reported Past Surgical History: Orthopedic Surgery Past Psychological History: No Psychological Hx Reported Smoking Status: Never smoker Past Alcohol Use History: None Reported Past Drug Use History: None Reported Medications and Allergies Home Medications Medication Instructions Recorded Confirmed Type Aspirin EC [Ecotrin Low Dose] 81 mg PO DAILY 09/01/17 01/05/20 History Cholecalciferol [Vitamin D3 (25 1,000 unit PO DAILY 09/01/17 01/05/20 History Mcg = 1000 Iu)] HYDROcodone/APAP 10-325MG [[place] 1 tab PO BID PRN 09/01/17 01/05/20 History 10-325] Melatonin 10 mg PO HS 09/01/17 01/05/20 History glipiZIDE [Glucotrol XL] 10 mg PO DAILY 09/01/17 01/05/20 History lisinopriL [Zestril] 20 mg PO BID 09/01/17 01/05/20 History predniSONE See Taper PO DAILY 09/01/17 01/05/20 History Atorvastatin [Lipitor] 10 mg PO DAILY 01/05/20 01/05/20 History Gabapentin 300 mg PO HS 01/05/20 01/05/20 History Pioglitazone [Actos] 30 mg PO DAILY 01/05/20 01/05/20 History Verapamil [Isoptin] 80 mg PO BID #60 tab 01/06/20 Rx Allergies Allergy/AdvReac Type Severity Reaction Status Date / Time No Known Allergies Allergy Verified 01/05/20 21:18 Physical Exam Vitals: Vital Signs Temp Pulse Pulse Resp BP BP Pulse Ox 01/06/20 12:00 97.6 F 95 18 137/61 97 01/06/20 08:00 97.6 F 86 18 128/67 98 01/06/20 04:00 98 F 66 18 148/86 96 01/06/20 00:00 75 18 01/05/20 21:28 98.2 F 75 18 153/88 95 01/05/20 21:14 84 18 159/69 98 01/05/20 19:44 97.9 F 108 H 20 175/64 99 Intake and Output 01/05/20 01/06/20 01/06/20 22:59 06:59 14:59 Intake Total 380 Balance 380 Intake: Intake, IV Titration 140 Amount Diltiazem 125 mg In 40 Sodium Chloride 0.9% 100 ml @ 5 MG/HR 5 mls/hr IV .Q24H [facility] Rx#:[id number] Sodium Chloride 0.9% 1, 100 000 ml @ 20 mls/hr IV . Q24H [facility] Rx#:[id number] Oral 240 Other: Voiding Method Toilet # Voids 3 1 Weight 72.575 kg 86.4 kg PHYSICAL EXAMINATION: GENERAL: The patient is alert and oriented x3, not in any acute distress. Well developed, well nourished. HEENT: Pupils are round and equally reacting to light. EOMI. No scleral icterus. No conjunctival pallor. Normocephalic, atraumatic. No pharyngeal erythema. No thyromegaly. CARDIOVASCULAR: S1 and S2 present. No murmurs, rubs, or gallops. PULMONARY: Chest is clear to auscultation, no wheezing or crackles. ABDOMEN: Soft, nontender, nondistended, normoactive bowel sounds. No palpable organomegaly. MUSCULOSKELETAL: No joint swelling or deformity. EXTREMITIES: No cyanosis, clubbing, or pedal edema. NEUROLOGICAL: Gross neurological examination did not reveal any focal deficits. SKIN: No rashes. Results CBC & Chem 7: 01/05/20 20:06 01/05/20 20:06 Labs: Abnormal Lab Results - Last 24 Hours (Table) 01/05/20 01/05/20 01/05/20 Range/Units 20:06 20:06 20:06 Neutrophils # 8.5 H (1.3-7.7) k/uL APTT 18.7 L (22.0-30.0) sec BUN 44 H (7-17) mg/dL Creatinine 1.38 H (0.52-1.04) mg/dL Glucose 335 H (74-99) mg/dL POC Glucose (mg/dL) (75-99) mg/dL 01/06/20 01/06/20 01/06/20 Range/Units 06:20 06:48 11:52 Neutrophils # (1.3-7.7) k/uL APTT (22.0-30.0) sec BUN (7-17) mg/dL Creatinine (0.52-1.04) mg/dL Glucose (74-99) mg/dL POC Glucose (mg/dL) 56 L 190 H 170 H (75-99) mg/dL Thrombosis Risk Factor Assmnt - Choose All That Apply Any of the Below Risk Factors Present?: Yes Each Factor Represents 1 point: Obesity (BMI >25) Each Risk Factor Represents 3 Points: Age 75 years or older Other congenital or acquired thrombophilia - If yes, enter type in comment: No Thrombosis Risk Factor Assessment Total Risk Factor Score: 4 Thrombosis Risk Factor Assessment Level: Moderate Risk Assessment and Plan Plan: -Super ventricular tachycardia: Patient heart rate is sinus rhythm at this time. Controlled and the patient was started on verapamil will be discharged later today. -Hypertension -hyperlipidemia - type 2 diabetes mellitus -chronic kidney disease with possibility of acute renal failure. 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 Patient metformin is being discontinued as well because of her poor renal function this can be restarted if kidney function improves. Patient was asked to check the blood sugars at home closely and patient may need insulin most of long-acting down the line.
--- NOTE | 2020-01-06 13:00 | P.DS ---
Providers Date of admission: 01/05/20 21:09 Attending physician: Liseth Palencia Consults: 01/05/20 21:11 Consult Physician Routine Consulting Provider: Sravan Salas Consult Reason/Comments: SVT Do you want consulting provider notified?: Yes Primary care physician: Mykel Marin [facility] Course: Please refer to HPI for further details Patient Condition at Discharge: Fair Plan - Discharge Summary Discharge Rx Participant: No New Discharge Prescriptions: New Verapamil [Isoptin] 80 mg PO BID #60 tab Continue Melatonin 10 mg PO HS Cholecalciferol [Vitamin D3 (25 Mcg = 1000 Iu)] 1,000 unit PO DAILY Aspirin EC [Ecotrin Low Dose] 81 mg PO DAILY glipiZIDE [Glucotrol XL] 10 mg PO DAILY lisinopriL [Zestril] 20 mg PO BID HYDROcodone/APAP 10-325MG [[place] 10-325] 1 tab PO BID PRN PRN Reason: Pain predniSONE See Taper PO DAILY Pioglitazone [Actos] 30 mg PO DAILY Gabapentin 300 mg PO HS Atorvastatin [Lipitor] 10 mg PO DAILY Discontinued hydroCHLOROthiazide [Hydrodiuril] 25 mg PO DAILY metFORMIN HCL [Glucophage] 500 mg PO BID Discharge Medication List Aspirin EC [Ecotrin Low Dose] 81 mg PO DAILY 09/01/17 [History] Cholecalciferol [Vitamin D3 (25 Mcg = 1000 Iu)] 1,000 unit PO DAILY 09/01/17 [History] HYDROcodone/APAP 10-325MG [[place] 10-325] 1 tab PO BID PRN 09/01/17 [History] Melatonin 10 mg PO HS 09/01/17 [History] glipiZIDE [Glucotrol XL] 10 mg PO DAILY 09/01/17 [History] lisinopriL [Zestril] 20 mg PO BID 09/01/17 [History] predniSONE See Taper PO DAILY 09/01/17 [History] Atorvastatin [Lipitor] 10 mg PO DAILY 01/05/20 [History] Gabapentin 300 mg PO HS 01/05/20 [History] Pioglitazone [Actos] 30 mg PO DAILY 01/05/20 [History] Verapamil [Isoptin] 80 mg PO BID #60 tab 01/06/20 [Rx] Follow up Appointment(s)/Referral(s): Mykel Marin DO [Primary Care Provider] - 3 Days (please make follow-up appt during office hours.) Patient Instructions/Handouts: Supraventricular Tachycardia (DC) Discharge Disposition: HOME SELF-CARE
[2020-01-06] MEDS ORDERED: ALBUTEROL NEB (CONC) 2.5 MG/0.5 ML INHALATION SCH (16:00)
[2020-01-06] MEDS ORDERED: MELATONIN 5 MG TABLET PO SCH (21:00)
== END 2020-01-06 13:17 | disposition home or self-care (01) | DRG 309 ==
LOC: EC 19:42 → 3SCARD 21:09
PROVIDERS: ADMIT Internal Medicine; ATTEND Internal Medicine
DX: I47.1 Supraventricular tachycardia (principal); N17.9 Acute kidney failure, unspecified; E83.42 Hypomagnesemia; E78.5 Hyperlipidemia, unspecified; E11.22 Type 2 diabetes mellitus with diabetic chronic kidney disease; I12.9 Hypertensive chronic kidney disease with stage 1 through stage 4 chronic kidney disease, or unspecified chronic kidney disease; Z96.653 Presence of artificial knee joint, bilateral; I25.10 Atherosclerotic heart disease of native coronary artery without angina pectoris; M16.0 Bilateral primary osteoarthritis of hip; T50.2X5A Adverse effect of carbonic-anhydrase inhibitors, benzothiadiazides and other diuretics, initial encounter; N18.9 Chronic kidney disease, unspecified; Z79.82 Long term (current) use of aspirin; Z79.84 Long term (current) use of oral hypoglycemic drugs; Z79.899 Other long term (current) drug therapy
CPT/HCPCS: 36415; 71046; 80053; 82550; 83735; 84443; 84484; 85025; 85379; 85610; 85730; 93005; 96365; 96368; 96375; 99291

== ENCOUNTER → 2021-04-21 | Outpatient (CLI) | payer MEDICARE, OTHER ==
--- NOTE | 2021-04-21 12:43 | XR ---
Lumbosacral spine HISTORY: Chronic low back pain, M5450,[id number] LBP,GAIT ABN 5 views of lumbosacral spine correlated to prior exam 08/31/2017, CT 09/01/2017 Bone mineralization is reduced. There is loss of disc height at intervertebral levels, associated vac uum phenomenon present especially at L4-5, L3-4, L2-3 and possibly L1-2. Anterior wedge compression d eformities present at L1 which is developed in the interval, loss of height of the superior endplate of approximately 25-50% anteriorly. There is a kyphosis centered at this level, retropulsion of the s uperior endplate of L1 is suspected, there may be retrolisthesis grade 1 L1-L2. There is compression deformity also noted anterior margin of L4. Multilevel spondylosis is present. Sclerosis in the poste rior elements is consistent with facet arthropathy change. No evident spondylolysis. There is a sligh t spinal curvature. Calcifications are present in the right paraspinal location similar to prior exam may be associated with the pancreas. Sclerosis is present in the right sacroiliac joint similar to p rior exam. IMPRESSION: Multilevel osteoporotic compression fractures have developed in the interval as described with some possible retropulsion, consider additional imaging. Degenerative disc disease, osteopenia, facet arthropathy.
== END | disposition home or self-care (01) ==
LOC: RADXRYALE 10:09
PROVIDERS: ATTEND Family Medicine
DX: M80.08XA Age-related osteoporosis with current pathological fracture, vertebra(e), initial encounter for fracture (principal); M51.37 Other intervertebral disc degeneration, lumbosacral region; M47.817 Spondylosis without myelopathy or radiculopathy, lumbosacral region; M85.88 Other specified disorders of bone density and structure, other site
CPT/HCPCS: 72110

== ENCOUNTER → 2021-09-23 | Outpatient (CLI) | payer MEDICARE, OTHER ==
[2021-09-23 08:35] VITALS: BP 176/72; PULSE 85; RESP 18; TEMP 97.8
--- NOTE | 2021-09-23 08:53 | P.PAINPG ---
PQRS Measure Charge Sheet Comment: HISTORY OF PRESENT ILLNESS: 76 yr old female w at side as a referral from Dr. Tao presents today with severe and chronic LBP secondary to DDD, disc bulges, neuroforaminal stenoses and facet arthropathy for evaluation. Pt states her pain level is currently at 7/10 in intensity but escalates as high as 10/10 with provocation. It is constant, pressure/ ache with occasional sharp pains. Pain is provoked with standing / walking for periods of 5-10 min or more. Pain is alleviated with PT which ended this week, PT integrated with massage, heat, medications (Gabapentin, Tylenol OTC), repositioning and rest. PMH: Diabetes Mellitus, Hypertension PSH: Orthopedic Surgery SH: Negative x 3 FH: Non contributory All: NKDA Meds: See list REVIEW OF ORGAN SYSTEMS: CONSTITUTIONAL: No fevers or chills. No recent weight loss. NEUROLOGICAL: + numbness and tingling along the distal extremities. No seizure disorders or headaches. MUSCULOSKELETAL: + pain PSYCHIATRIC: Denies current depression or suicidal thoughts. Physical Examinations : Constitutional : Cooperative , not in acute distress . Neurologic : Cranial nerve II to XII intact. No focal neurological deficits. Psychiatric : alert & oriented x 3. Matching mood & appropriate affect. Judgment & insight intact. Musculoskeletal : Cervical Spine Motor strength in the deltoid and biceps: Normal right side. Normal Left side Motor strength biceps and the wrist extensors: Normal right side . Normal left side Motor strength in the triceps muscle: Normal right side. Normal left side Deep tendon reflexes: Normal at the biceps. Normal at Brachioradialis. Normal at triceps Vertebral body tenderness to deep palpation over Cervical facet loading test: positive bilaterally Spurling test: positive bilaterally Neck distraction test: positive bilaterally Daisy sign: positive bilaterally Lumbar spine Motor strength lower extremities ,thigh and legs 5/5 Right side , 5/5 Left side Deep tendon reflexes : Normal Knee Jerk. Normal Ankle Jerk Vertebral body tenderness over Lumbar facet Loading Test: positive Right / positive Left over BL L4-L5, L5-S1 w jump reflex Range of motion of the lumbar spine Flexion 30 degrees, extension 10 degrees Straight Leg Raise test: Left/ Right positive at degree Radha test: positive right / positive left. Severe tenderness over the Sacroiliac joint on the Right / Left sides Gaenslen test: positive bilaterally Seated flexion test: positive bilaterally. Sacral spine : Severe tenderness over the Sacroiliac joint: right side / left side Range of motion: Flexion of the lumbar spine <60 degrees Range of motion: Extension of the lumbar spine <20 degrees Gaenslen's Test positive Chang's Test positive Radha test: positive right side / left side Thigh Thrust Test Sacral Thrust Test Imaging: MRI without contrast of the lumbar spine from 02/05/19 reviewed Assessment/ Plan : Lumbar DDD, Lumbar stenosis Recommendation of LESI L3-L4. May need a series of injections, up to 3 within a 6 mo period, for optimal pain relief. Risks, benefits of procedure discussed and patient verbalized understanding. Admits to aspirin or anti- coagulant use or medical history of diabetes. Protocol for discontinuation/ continuation of medications yudy procedure discussed. All questions answered. I have spent greater than 30 minutes on patient care today. Dr Moseley was available by phone for the evaluation of this patient. The time was used to review the medical records including relevant urine studies and Prescription history (MAPs), review of the available imaging, evaluation and examination of the patient, coordination of care with the medical staff and if applicable referring physicians, as well as creation of the medical record PQRS Narrative: Smoking Status Never smoker Home Medications: Ambulatory Orders Aspirin EC [Ecotrin Low Dose] 81 mg PO DAILY 09/01/17 Cholecalciferol [Vitamin D3 (25 Mcg = 1000 Iu)] 1,000 unit PO DAILY 09/01/17 Melatonin [Melatonin ER] 10 mg PO HS 09/01/17 glipiZIDE [Glucotrol XL] 10 mg PO DAILY 09/01/17 lisinopriL [Zestril] 20 mg PO BID 09/01/17 predniSONE See Taper PO DAILY 09/01/17 Atorvastatin [Lipitor] 10 mg PO DAILY 01/05/20 Gabapentin 300 mg PO HS 01/05/20 Pioglitazone [Actos] 30 mg PO DAILY 01/05/20 Verapamil [Isoptin] 80 mg PO BID #60 tab 01/06/20 Controlled Substance Measures - Controlled Substance Measures Is patient prescribed a controlled substance at discharge?: No
== END ==
LOC: PNWHC3 08:04
PROVIDERS: ATTEND Specialist
DX: M51.36 Other intervertebral disc degeneration, lumbar region (principal); M51.26 Other intervertebral disc displacement, lumbar region; M48.062 Spinal stenosis, lumbar region with neurogenic claudication; E11.9 Type 2 diabetes mellitus without complications; I10 Essential (primary) hypertension; Z79.84 Long term (current) use of oral hypoglycemic drugs; Z79.899 Other long term (current) drug therapy
CPT/HCPCS: 99211

== ENCOUNTER 2021-12-08 06:18 | Day surgery (SDC) | payer MEDICARE, OTHER ==
[~2021-12-08 06:18] MED LIST: LACTATED RINGERS 1,000 ML IV SCH; LIDOCAINE 1% (10MG/ML) FOR IV START INTRADERMA PRN
[2021-12-08 06:47] VITALS: TEMP 97.6
[2021-12-08 06:58] LABS: Glucose,Whole Blood 110 mg/dL (70-110)
[2021-12-08] MEDS ORDERED: IOPAMIDOL M200 10 ML VIAL ONE (07:28)
[2021-12-08] MEDS ORDERED: methylPREDNISolone ACETATE 40 MG/ML 1 ML VIAL ONE (07:28)
[2021-12-08] MEDS ORDERED: fentaNYL (PF) 50 MCG/ML 2 ML AMP ONE (07:28)
[2021-12-08] MEDS ORDERED: MIDAZOLAM 2 MG/2 ML VIAL ONE (07:28)
--- NOTE | 2021-12-08 07:41 | P.PCN ---
Date of Procedure: 12/08/21 Procedure(s) Performed: PREOPERATIVE DIAGNOSIS: 1- Lumbar Degenerative Disc Diseases 2-Lumbar spondylosis with Facet arthropathy without myelopathy. POSTOPERATIVE DIAGNOSIS: Same as preop diagnosis. PROCEDURE 1. Lumbar epidural steroid injection under fluoroscopic guidance at the L4-5 level. (Fluoroscopy imaging was available in radiology department) 2. Lumbar epidurogram. ANESTHESIA: moderate sedation with intravenous Versed 1 mg ,and fentanyle 50 Mcg Sedation start time : 0 729 Sedation end time : 0 739 EBL: Minimal PROCEDURE INDICATION: The patient with low back pain and radiculitis symptoms unresponsive to conservative treatment. Fluoroscopy was used to optimize visualization of the needle placement and to maximize safety. PROCEDURE DESCRIPTION / TECHNIQUE: The patient was seen and identified in the preoperative area. Risks, benefits, complications including but not limited to infections ,bleeding ,allergic reaction to the medications ,nerve damage and not complete pain releife , and alternatives were discussed with the patient. The patient agreed to proceed with the procedure and signed the consent. IV was started, and vital signs were stable. Patient was taken to the OR and time out was completed. The patient was placed in the prone position on procedure table and a pillow was placed under the abdomen to reduce lumbar lordosis. The lumbosacral area was prepped and draped in the usual sterile fashion.ere closely monitored during the procedure. Conscious sedation was used during the procedure to decrease patients anxiety. Vital signs was monitered during the entire procedure. Using anterior-posterior fluoroscopy, the L4-5 interlaminar space was identified and the skin over this site was marked and then infiltrated with 1% lidocaine subcutaneously. Subsequently, a 20-gauge Tuohy epidural needle was inserted and advanced toward the epidural space using the ``Loss of resistance technique and guided by AP and lateral fluoroscopy. The correct needle position in the e pidural space was verified with the injection of 2 mL of the water soluble contrast dye Isovue 200 contrast and observing an excellent epidurogram with the epidural spread of the dye, after negative aspiration for blood and CSF and in the absence of paresthesias. Again after negative aspiration, a 6 ml mixture containing 40 mg of Depo-medrol ( Preservetive Free ), and 2 ml of preservative free Normal Saline, and 2 ml of preservative free lidocaine 1% solution was injected and a washout of epidurogram was seen. Needle was withdrawn intact, skin was cleansed, and bandages were applied. COMPLICATIONS: None DISPOSITION / PLANS: The patient was placed in a supine position and transferred to the recovery area in a stable condition for observation. There was no evidence of lower extremity motor or sensory deficit after the procedure. Patient was discharged from the recovery room after meeting discharge criteria. Home discharge instructions were given to the patient by the staff. The patient was reexamined prior to discharge. The patient will schedule a follow up in the clinic in 2-4 weeks.
[2021-12-08] MEDS ORDERED: LACTATED RINGERS 1,000 ML IV ONE (07:45)
[2021-12-08] MEDS ORDERED: IV FLUID CONTINUATION 1,000 ML IV ONE (07:45)
[2021-12-08 07:48] VITALS: RESP 16
[2021-12-08 08:04] VITALS: BP 154/73; PULSE 63
--- NOTE | 2021-12-08 08:37 | FL ---
Fluoroscopy History: LUM EPI INJ 2 sec lumbar epi
== END 2021-12-08 08:15 | disposition home or self-care (01) ==
LOC: ORPAIN 06:18
PROVIDERS: ATTEND Specialist
DX: M51.16 Intervertebral disc disorders with radiculopathy, lumbar region (principal); M47.26 Other spondylosis with radiculopathy, lumbar region
CPT/HCPCS: 62323; J2250; J1030; J3010; Q9966

== ENCOUNTER → 2022-01-04 | Outpatient (CLI) | payer MEDICARE, OTHER ==
[2022-01-04 09:55] VITALS: BP 160/77; PULSE 80; RESP 18; TEMP 98.1
--- NOTE | 2022-01-04 14:52 | P.PAINPG ---
PQRS Measure Charge Sheet Comment: A 76 yr old female w at side with a history of severe and chronic low back pain secondary to lumbar degenerative disc diseases and lumbar spondylosis with facet arthropathy without myelopathy presents today for evaluation s/p QUETA L4-L5. Pt states she experienced 40% pain relief x 4 wks s/p procedure. Pain level is currently at 6/10 in intensity, constant, localized in the lower lumbar spine, achy in character w shooting towards the BL flanks. Pain is provoked as high as 10/10 by standing/ walking for periods of 15 min or more. Pain is alleviated with injections, meds (Tylenol OTC), use of wlaker, PT in August 2021, home exercise as tolerated, reclining, repositioning and rest. Interventional pain procedures completed include QUETA L4-L5 Patient is currently on Tylenol OTC Patient denies any side effects of the medication(s), denies excessive drowsiness or sleepiness, denies suicidal ideation and reports that the current pain medication is helping to control the pain and improve activities of daily living. Patient denies any motor or sensory deficits. Patient denies any fever or night sweats, denies any change in the bowel movements or urination. Physical Examination: -Constitutional: Cooperative. Not in acute distress . - Neurologic: Cranial nerve II to XII intact. No focal neurological deficits. - Psychatric: Alert & oriented x 3. Matching mood & appropriate affect. Judgment and insight intact. - Musculoskeletal: Cervical spine: Muscle bulk/ tone/ strength in the bilateral upper extremities normal Vertebral body tenderness to palpation over Spurling test positive Distraction test positive Facet loading test positive Thoracic spine Muscle bulk / tone/ strength in the bilateral paraspinal muscles normal Vertebral body tender to palpation over Facet loading test positive Lumbar spine: Motor bulk/ tone/ strength lower extremities , thigh and legs : 5/5 Deep tendon reflexes : Normal Knee Jerk. Normal Ankle Jerk . Vertebral body tenderness to palpation over Lumbar Facet Loading Test positive w jump reflex over BL L4-L5, L5-S1 Straight Leg Raise: positive at 30 degrees right side/ left side Gaenslen's Test positive Sacral spine : Severe tenderness over the Sacroiliac joint: right side / left side Range of motion: Flexion of the lumbar spine <60 degrees Range of motion: Extension of the lumbar spine <20 degrees Gaenslen's Test positive Chang's Test positive Radha test: positive right side / left side Thigh Thrust Test Sacral Thrust Test Assessment and plan: Chronic low back pain secondary to lumbar degenerative disc disease , lumbar spondylosis with facet arthropathy without myelopathy Recommendation of BL MBP L4-L5, L5-S1 #1. Patient may need a series of injections, up until RFA, for optimal pain relief. Risks, benefits of procedure discussed and pt verbalized understanding. Admits to anticoagulant use or medical history of diabetes. Total, for discontinuation/attenuation of medications discussed. All patient questions answered I have spent less than 30 minutes on patient care today. Dr Moseley was available by phone for the evaluation of this patient. The time was used to review the medical records including relevant urine studies and Prescription history (MAPs), review of the available imaging, evaluation and examination of the patient, coordination of care with the medical staff and if applicable referring physicians, as well as creation of the medical record PQRS Narrative: Smoking Status Never smoker Hx Alcohol Use (MH) No Home Medications: Ambulatory Orders Aspirin EC [Ecotrin Low Dose] 81 mg PO DAILY 09/01/17 Cholecalciferol [Vitamin D3 (25 Mcg = 1000 Iu)] 1,000 unit PO DAILY 09/01/17 Melatonin [Melatonin ER] 10 mg PO HS 09/01/17 glipiZIDE [Glucotrol XL] 10 mg PO QAM 09/01/17 Atorvastatin [Lipitor] 10 mg PO QAM 01/05/20 Gabapentin 300 mg PO TID 01/05/20 Pioglitazone [Actos] 45 mg PO QAM 01/05/20 Losartan Potassium [Cozaar] 100 mg PO QAM 10/28/21 Verapamil [Isoptin] 80 mg PO TID 10/28/21 Controlled Substance Measures - Controlled Substance Measures Is patient prescribed a controlled substance at discharge?: No
== END ==
LOC: PNWHC3 09:17
PROVIDERS: ATTEND Specialist
DX: M47.816 Spondylosis without myelopathy or radiculopathy, lumbar region (principal); M51.36 Other intervertebral disc degeneration, lumbar region; G89.29 Other chronic pain; Z79.01 Long term (current) use of anticoagulants; E11.9 Type 2 diabetes mellitus without complications; Z79.84 Long term (current) use of oral hypoglycemic drugs
CPT/HCPCS: 99211

== ENCOUNTER 2022-02-11 06:44 | Day surgery (SDC) | payer MEDICARE, OTHER ==
[2022-02-09 10:58] VITALS: BMI 39.4
[2022-02-11 07:14] VITALS: RESP 17; TEMP 97.8
[2022-02-11] MEDS ORDERED: LACTATED RINGERS 1,000 ML IV ONE (07:25)
[2022-02-11 07:27] LABS: Glucose,Whole Blood 106 mg/dL (70-110)
[2022-02-11] MEDS ORDERED: MIDAZOLAM 2 MG/2 ML VIAL ONE (07:57)
[2022-02-11] MEDS ORDERED: methylPREDNISolone ACETATE 40 MG/ML 1 ML VIAL ONE (07:57)
[2022-02-11] MEDS ORDERED: fentaNYL (PF) 50 MCG/ML 2 ML AMP ONE (07:57)
[2022-02-11] MEDS ORDERED: ROPIVACAINE 5 MG/ML 20 ML AMPULE ONE (07:57)
--- NOTE | 2022-02-11 08:13 | P.PCN ---
Date of Procedure: 02/11/22 Procedure(s) Performed: PREOPERATIVE DIAGNOSIS : 1- Lumbar spondylosis with Facet Arthropathy without myelopathy . 2- Lumber degenerative disc disease POSTOPERATIVE DIAGNOSIS: 1- Lumbar spondylosis with Facet Arthropathy without myelopathy . 2- Lumber degenerative disc disease PROCEDURE: Diagnostic bilateral L3 , L4 , and L5 medial branch block under fluoroscopy guidance(fluoroscopy images available in the radiology Department ) ( To target the facet joint between Bilateral L4-5 , and L5-S1 ) ANESTHESIA: moderate sedation with intravenous Versed 2 mg and Fentanyl 100 mcg. Sedation start at 07:59 ,end at 08:11 EBL: Minimal COMPLICATION: None PROCEDURE INDICATION: Chronic low back pain secondary to Facet arthropathy unresponsive to conservative treatment. PROCEDURE DESCRIPTION: the patient was seen and identified in the preop holding area , risks and benefits and possible complications of the procedure and alternative were discussed with the patient, and the patient agreed to proceed with the procedure and signed the consent and vital signs monitored during the procedure and fluoroscopy was used to maximize the benefit and accuracy of the needle placement, and sedation was given to decrease patient anxiety, patient was taken to the procedure room and placed in prone position vital signs monitored in the back prepped with chlorhexidine X3 then under stri ct sterile technique using a right oblique fluoroscopy ,the junction of the transverse process and the superior articulating process of the right L3 , L4 , and L5 vertebra which corresponding to the fluoroscopy image of the eye of the Javier dog on the block side for the medial branches and subsequently , after local infiltration of skin and subcu tissuies with Ropivacaine 0.5 % , one mL at each level ,then 22-gauge Quincke-type needles , 3 needle was used , each one of them placed at the junction of the base of the transverse process and the superior articular process at the appropriate level, and the needle was advanced until the periosteum contacted, needle placement confirmed with AP oblique and lateral view and after appropriate needle placement confirmed, and after negative aspiration for heme and CSF and there was no paresthesia 1-1/2 mL of Ropivacaine 0.5% mixed with 20 mg Depo-Medrol , then half mL injected at each level after negative aspiration the needle subsequently removed and the same procedure repeated for the left side at left side at L3 , L4 and L5 levels. At the end of the procedure and the needles removed and a bandage applied after the skin was cleaned the cleaning solution patient taken to recovery room in stable condition and monitors in the recovery room for 20-30 minutes and discharged home in stable condition after discharge criteria met and patient will follow up with the pain clinic in 2-4 weeks
[2022-02-11] MEDS ORDERED: IV FLUID CONTINUATION 1,000 ML IV ONE (08:18)
[2022-02-11 08:19] VITALS: PULSE 68
[2022-02-11 08:34] VITALS: BP 146/72
--- NOTE | 2022-02-11 11:24 | FL ---
EXAMINATION TYPE: FL guided pain mgmt statistic DATE OF EXAM: 02/11/2022 FLUOROSCOPY Fluoroscopy time of 25 seconds was used during bilateral lumbar facet blocks. 4 image/s document/s t he procedure.
== END 2022-02-11 08:50 | disposition home or self-care (01) ==
LOC: ORPAIN 06:44
PROVIDERS: ATTEND Specialist
DX: M47.816 Spondylosis without myelopathy or radiculopathy, lumbar region (principal); M51.36 Other intervertebral disc degeneration, lumbar region
CPT/HCPCS: 99152; 64493; 64494; J2250; J1030; J3010; J2795

== ENCOUNTER → 2022-03-01 | Outpatient (CLI) | payer MEDICARE, OTHER ==
[2022-03-01 10:26] VITALS: BP 145/65; PULSE 74; RESP 18; TEMP 98.6
--- NOTE | 2022-03-01 15:01 | P.PAINPG ---
Objective - Vital Signs Vital signs: Vital Signs Temp 98.6 F 03/01/22 10:21 Pulse 74 03/01/22 10:21 Resp 18 03/01/22 10:21 BP 145/65 03/01/22 10:21 Pulse Ox 98 03/01/22 10:21 FiO2 PQRS Measure Charge Sheet Mode of Arrival: Ambulatory, Walker Comment: A 77 yr old female with a history of severe and chronic low back pain secondary to lumbar DDD and spondylosis with facet arthropathy without myelopathy presents today for evaluation s/p BL facet block of the medial branches L4-L5, L5-S1 #1. Pt states she experienced 100 % pain relief x 1 days s/p procedure. Pain level is currently at 7 /10 in intensity w provocation, constant, localized in the lower lumbar spine, dull/ achy inchraacter w shooting towards the BLEs. Pain is provoked by walking/ standing for periods of 10 min, bending or lifting. Pain is alleviated with PT in August 2021, home exercise regimen, medications (Tyl), repositioning and rest. Interventional pain procedures completed include BL MBB L3-L5 x1 Patient is currently on Tylenol Patient denies any side effects of the medication(s), denies excessive drowsiness or sleepiness, denies suicidal ideation and reports that the current pain medication is helping to control the pain and improve activities of daily living. Patient denies any motor or sensory deficits. Patient denies any fever or night sweats, denies any change in the bowel movements or urination. Physical Examination: -Constitutional: Cooperative. Not in acute distress . - Neurologic: Cranial nerve II to XII intact. No focal neurological deficits. - Psychatric: Alert & oriented x 3. Matching mood & appropriate affect. Judgment and insight intact. - Musculoskeletal: Cervical spine: Muscle bulk/ tone/ strength in the bilateral upper extremities normal Vertebral body tenderness to palpation over Spurling test positive Distraction test positive Facet loading test positive Thoracic spine Muscle bulk / tone/ strength in the bilateral paraspinal muscles normal Vertebral body tender to palpation over Facet loading test positive Lumbar spine: Motor bulk/ tone/ strength lower extremities , thigh and legs : 5/5 Deep tendon reflexes : Normal Knee Jerk. Normal Ankle Jerk . Vertebral body tenderness to palpation over Lumbar Facet Loading Test positive TTP over BL L4-L5, L5-S1 facets Straight Leg Raise: positive at 30 degrees right side/ left side Gaenslen's Test positive Sacral spine : Severe tenderness over the Sacroiliac joint: right side / left side Range of motion: Flexion of the lumbar spine <60 degrees Range of motion: Extension of the lumbar spine <20 degrees Gaenslen's Test positive Radha test: positive right side / left side Thigh Thrust Test Sacral Thrust Test Assessment and plan: Chronic low back pain secondary to lumbar degenerative disc disease, spondylosis with facet arthropathy without myelopathy Recommendation of BL facet block of the medial branches L4-L5, L5-S1 #2. May need a series of injections, up until RFA, for optimal pain relief. Risks, benefits of procedure discussed and pt verbalized understanding. Admits to anticoagulant use or medical history of diabetes. Protocol for discontinuation/ continuation of medications yudy procedure discussed. All patient questions answered I have spent less than 30 minutes on patient care today. Dr Moseley was available by phone for the evaluation of this patient. The time was used to review the medical records including relevant urine studies and Prescription history (MAPs), review of the available imaging, evaluation and examination of the patient, coordination of care with the medical staff and if applicable referring physicians, as well as creation of the medical record - Pain Location Lower Back Non-Pharmacological Interventions: Home Exercise, Inactivity, Physical Therapy, Position/Reposition, Sitting, Stretching Pharmacological Interventions: Block, Epidural, PRN Medication PQRS Narrative: Smoking Status Never smoker Blood Pressure 145/65 Pain Intensity [Lower Back] 7 Scale Used Numeric (1 - 10) Hx Alcohol Use (MH) No Home Medications: Ambulatory Orders Aspirin EC [Ecotrin Low Dose] 81 mg PO DAILY 09/01/17 Cholecalciferol [Vitamin D3 (25 Mcg = 1000 Iu)] 1,000 unit PO DAILY 09/01/17 Melatonin [Melatonin ER] 10 mg PO HS 09/01/17 glipiZIDE [Glucotrol XL] 10 mg PO QAM 09/01/17 Atorvastatin [Lipitor] 10 mg PO QAM 01/05/20 Gabapentin 300 mg PO TID 01/05/20 Pioglitazone [Actos] 45 mg PO QAM 01/05/20 Losartan Potassium [Cozaar] 100 mg PO QAM 10/28/21 Verapamil [Isoptin] 80 mg PO TID 10/28/21 Controlled Substance Measures - Controlled Substance Measures Is patient prescribed a controlled substance at discharge?: No
== END ==
LOC: PNWHC3 10:00
PROVIDERS: ATTEND Specialist
DX: M47.816 Spondylosis without myelopathy or radiculopathy, lumbar region (principal); M51.36 Other intervertebral disc degeneration, lumbar region; E11.9 Type 2 diabetes mellitus without complications; Z79.84 Long term (current) use of oral hypoglycemic drugs
CPT/HCPCS: 99211

== ENCOUNTER 2022-04-02 07:07 | Day surgery (SDC) | payer MEDICARE, OTHER ==
[2022-04-02] MEDS ORDERED: LACTATED RINGERS 1,000 ML IV SCH (07:22)
[2022-04-02] MEDS ORDERED: LIDOCAINE 1% (10MG/ML) FOR IV START INTRADERMA PRN (07:22)
[2022-04-02 07:34] VITALS: TEMP 97.6
[2022-04-02] MEDS ORDERED: METOPROLOL TARTRATE 5 MG/5 ML VIAL IVP ONE (07:45)
[2022-04-02 07:53] LABS: Glucose,Whole Blood 94 mg/dL (70-110)
[2022-04-02] MEDS ORDERED: LACTATED RINGERS 1,000 ML IV ONE (07:53)
[2022-04-02] MEDS ORDERED: ROPIVACAINE 5 MG/ML 20 ML AMPULE ONE (08:22)
[2022-04-02] MEDS ORDERED: fentaNYL (PF) 50 MCG/ML 2 ML AMP ONE (08:22)
[2022-04-02] MEDS ORDERED: MIDAZOLAM 2 MG/2 ML VIAL ONE (08:22)
[2022-04-02] MEDS ORDERED: methylPREDNISolone ACETATE 40 MG/ML 1 ML VIAL ONE (08:22)
--- NOTE | 2022-04-02 08:38 | P.PCN ---
Date of Procedure: 04/02/22 Procedure(s) Performed: PREOPERATIVE DIAGNOSIS : 1- Lumbar spondylosis with Facet Arthropathy without myelopathy . 2- Lumber degenerative disc disease POSTOPERATIVE DIAGNOSIS: 1- Lumbar spondylosis with Facet Arthropathy without myelopathy . 2- Lumber degenerative disc disease PROCEDURE: Diagnostic bilateral L3 , L4 , and L5 medial branch block under fluoroscopy guidance(fluoroscopy images available in the radiology Department ) ( To target the facet joint between Bilateral L4-5 , and L5-S1 )# 2nd ANESTHESIA: Monitored anesthesia care as per anesthesia department. EBL: Minimal COMPLICATION: None PROCEDURE INDICATION: Chronic low back pain secondary to Facet arthropathy unresponsive to conservative treatment. PROCEDURE DESCRIPTION: the patient was seen and identified in the preop holding area , risks and benefits and possible complications of the procedure and alternative were discussed with the patient, and the patient agreed to proceed with the procedure and signed the consent and vital signs monitored during the procedure and fluoroscopy was used to maximize the benefit and accuracy of the needle placement, and sedation was given to decrease patient anxiety, patient was taken to the procedure room and placed in prone position vital signs monitored in the back prepped with chlorhexidine X3 then under strict sterile technique using a right oblique fluoroscopy ,the junction of the transverse process and the superior articulating process of the right L3 , L4 , and L5 vertebra which corresponding to the fluoroscopy image of the eye of the Javier dog on the block side for the medial branches and subsequently , after local infiltration of skin and subcu tissuies with Ropivacaine 0.5 % , one mL at each level ,then 22-gauge Quincke-type needles , 3 needle was used , each one of them placed at the junction of the base of the transverse process and the superior articular process at the appropriate level, and the needle was advanced until the periosteum contacted, needle placement confirmed with AP oblique and lateral view and after appropriate needle placement confirmed, and after negative aspiration for heme and CSF and there was no paresthesia 1-1/2 mL of Ropivacaine 0.5% mixed with 20 mg Depo-Medrol , then half mL injected at each level after negative aspiration the needle subsequently removed and the same procedure repeated for the left side at left side at L3 , L4 and L5 levels. At the end of the procedure and the needles removed and a bandage applied after the skin was cleaned the cleaning solution patient taken to recovery room in stable condition and monitors in the recovery room for 20-30 minutes and discharged home in stable condition after discharge criteria met and patient will follow up with the pain clinic in 2-4 weeks
[2022-04-02] MEDS ORDERED: LACTATED RINGERS 550 ML IV ONE (08:44)
--- NOTE | 2022-04-02 08:52 | FL ---
Intraoperative/procedural fluoroscopic services were provided for bilateral lumbar facet block. Total fluoroscopy time is 8 seconds with a total of 5 submitted images to PACS. Please see the operative n ote for further details.
[2022-04-02 09:07] VITALS: BP 134/62; PULSE 56; RESP 20
== END 2022-04-02 09:20 | disposition home or self-care (01) ==
LOC: ORPAIN 07:07
PROVIDERS: ATTEND Specialist
DX: M47.816 Spondylosis without myelopathy or radiculopathy, lumbar region (principal); M51.36 Other intervertebral disc degeneration, lumbar region; G89.29 Other chronic pain; I10 Essential (primary) hypertension; E11.9 Type 2 diabetes mellitus without complications; F41.9 Anxiety disorder, unspecified; Z79.899 Other long term (current) drug therapy; Z79.82 Long term (current) use of aspirin; Z79.84 Long term (current) use of oral hypoglycemic drugs
CPT/HCPCS: 64493; 64494; J2250; J1030; J3010; J2795

== ENCOUNTER 2022-06-25 07:15 | Day surgery (SDC) | payer MEDICARE, OTHER ==
[2022-06-25 07:56] LABS: Glucose,Whole Blood 97 mg/dL (70-110)
[2022-06-25 07:59] VITALS: RESP 16; TEMP 97.2
[2022-06-25] MEDS ORDERED: fentaNYL (PF) 50 MCG/ML 2 ML AMP ONE (08:11)
[2022-06-25] MEDS ORDERED: MIDAZOLAM 2 MG/2 ML VIAL ONE (08:11)
[2022-06-25] MEDS ORDERED: ROPIVACAINE 5 MG/ML 20 ML AMPULE ONE (08:17)
[2022-06-25] MEDS ORDERED: methylPREDNISolone ACETATE 40 MG/ML 1 ML VIAL ONE (08:17)
--- NOTE | 2022-06-25 08:40 | P.PCN ---
Date of Procedure: 06/25/22 Procedure(s) Performed: PREOPERATIVE DIAGNOSIS: 1-Lumbar Spondylosis with Facet Arthropathy without myelopathy. 2- Lumber degenerative disc disease. POSTOPERATIVE DIAGNOSIS: 1- Lumbar Spondylosis with Facet Arthropathy without myelopathy. 2- Lumber degenerative disc disease. PROCEDURES : Bilateral Radiofrequency thermocoagulation, L3 , L4 , and L5 medial branch, with fluoroscopic guidance (fluoroscopy images available in the radiology department) ( to denervate the facet joint at bilateral L4-5 ,and L5-S1 levels ). ANESTHESIA: Monitored anesthesia care as per anesthesia department . EBL: Minimal PROCEDURE INDICATION: The patient with low back pain secondary to lumbar facet arthropathy who had more than 50% relief of her pain with previous diagnostic lumbar medial branch block with bupivacaine. PROCEDURE DESCRIPTION / TECHNIQUE: The patient was seen and identified in the preoperative area. Risks, benefits, complications, including but not limited to risk of infection ,bleeding , allergic reactions to the medications and no complete pain releife , and alternatives were discussed with the patient, the patient agreed to proceed with the procedure and signed the consent. IV was started. Vital signs remained stable throughout the procedure. Patient was taken to the OR and time out was completed. The patient was placed in the prone position on the procedure table. The lumber area was prepped and draped in the usual sterile fashion. . Vital signs were closely monitored during the procedure .IV sedation was used during the procedure to decrease patients anxiety. Using AP and then oblique fluoroscopy, the ``eye of the Javier dog cor responding to the connection between the superior and transverse articular processes of right L3, L4, and L5 were identified, marked, and localized with 1% lidocaine. Subsequently, a 18 [id number] radiofrequency cannula with a 10- mm active tip was advanced guided by fluoroscopy to each of the``eyes of the Javier dog at right L3, L4, and L5. Each site then underwent sensory testing at 50 Hz and 0 to 1 volt and motor testing at 2.5 Hz and 0 to 3 volt with local stimulation, but no radicular symptoms down the legs. Thereafter each sites underwent radiofrequency thermocoagulation at 80 degrees celsius for 90 seconds after injecting 0.5 ml of PF Ropivacaine 1ml, then after the thermocoagulation done , 1 ml of the block solution containing Depo-Medrol 20 mg and 3 ml of Ropivacaine 0.5% was injected at the right L3 , L4 , and L5 , levels after negative aspiration of CSF and blood and with no paresthesias. Cannulas were retracted while injecting lidocaine 1% until the needle is out. The same procedure was repeated at the level of Left L3, L4, and L5 levels. At the end of the procedure, the skin was cleansed and bandages were applied. COMPLICATIONS: No acute complications. DISPOSITION / PLANS: The patient was placed in a supine position and transferred to the recovery area in a stable condition for observation and was discharged from the recovery room after meeting discharge criteria. Home discharge instructions given to the patient by the staff. The patient was reexamined prior to discharge. The patient will schedule a follow up in the clinic in 2-4 weeks.
[2022-06-25] MEDS ORDERED: IV FLUID CONTINUATION 1,000 ML IV ONE (08:45)
--- NOTE | 2022-06-25 08:54 | FL ---
Intraoperative/procedural fluoroscopic services were provided for bilateral lumbar radiofrequency. To walter fluoroscopy time is 11 seconds with a total of 6 submitted images to PACS. Total DAP [id number]. Ple ase see the operative note for further details.
[2022-06-25 09:04] VITALS: BP 147/71; PULSE 52
== END 2022-06-25 09:22 | disposition home or self-care (01) ==
LOC: ORPAIN 07:15
PROVIDERS: ATTEND Specialist
DX: M51.36 Other intervertebral disc degeneration, lumbar region (principal); M47.816 Spondylosis without myelopathy or radiculopathy, lumbar region; I10 Essential (primary) hypertension; E11.9 Type 2 diabetes mellitus without complications; Z79.82 Long term (current) use of aspirin; Z79.84 Long term (current) use of oral hypoglycemic drugs; Z79.899 Other long term (current) drug therapy
CPT/HCPCS: 64635; 64636 ×2; J2250; J1030; J3010; J2795

== ENCOUNTER → 2022-07-14 | Outpatient (CLI) | payer MEDICARE, OTHER ==
[2022-07-14 11:08] VITALS: BP 141/69; PULSE 58; RESP 18; TEMP 97.9
--- NOTE | 2022-07-14 14:34 | P.PAINPG ---
PQRS Measure Charge Sheet Comment: A 77 yr old female with a history of severe and chronic LBP secondary to lumbar DDD and spondylosis with facet arthropathy without myelopathy presents today for evaluation s/p BL RFA L4-L5, L5-S1. Pt states she experienced 50 % pain relief s/p procedure. Pain level is provoked at 8 /10 in intensity, consta nt, localized in the lumbar spine, pressure-like in character w/o shooting pain. Pain is provoked by weight bearing activity. Pain is alleviated with ambulation w a walker, PT integrated w massage x 8 wks in Mar 2022, heat, ice, medications, repositioning and rest. Interventional pain procedures completed include BL RFA L3-L5 (Jun 2022), QUETA L3-4 x1, L4-5 x1 Patient is currently on Tyl Patient denies any side effects of the medication(s), denies excessive drowsiness or sleepiness, denies suicidal ideation and reports that the current pain medication is helping to control the pain and improve activities of daily living. Patient denies any motor or sensory deficits. Patient denies any fever or night sweats, denies any change in the bowel movements or urination. Physical Examination: -Constitutional: Cooperative. Not in acute distress . - Neurologic: Cranial nerve II to XII intact. No focal neurological deficits. - Psychatric: Alert & oriented x 3. Matching mood & appropriate affect. J udgment and insight intact. - Musculoskeletal: Cervical spine: Muscle bulk/ tone/ strength in the bilateral upper extremities normal Vertebral body tenderness to palpation over Spurling test positive Distraction test positive Facet loading test positive TTP Thoracic spine Muscle bulk / tone/ strength in the bilateral paraspinal muscles normal Vertebral body tender to palpation over Facet loading test positive TTP Lumbar spine: Motor bulk/ tone/ strength lower extremities , thigh and legs : 5/5 Deep tendon reflexes : Normal Knee Jerk. Normal Ankle Jerk . Vertebral body tenderness to palpation over Lumbar Facet Loading Test positive Straight Leg Raise: positive at 30 degrees right side/ left side Gaenslen's Test positive Sacral spine : Severe tenderness over the Sacroiliac joint: right side / left side Range of motion: Flexion of the lumbar spine <60 degrees Range of motion: Extension of the lumbar spine <20 degrees Gaenslen's Test positive right side / left side Radha test: positive right side / left side Thigh Thrust Test positive right side / left side Sacral Thrust Test positive right side / left side Assessment and plan: Chronic LBP secondary to lumbar DDD, spondylosis with facet arthropathy without myelopathy Recommendation of medication management. Diclofenac gel 3% TID for pain disp 100gmw 1 RF. All questions answered. I have spent less than 30 minutes on patient care today. Dr Moseley was avai lable by phone for the evaluation of this patient. The time was used to review the medical records including relevant urine studies and Prescription history (MAPs), review of the available imaging, evaluation and examination of the patient, coordination of care with the medical staff and if applicable referring physicians, as well as creation of the medical record - Pain Location Bilateral Lower Back Non-Pharmacological Interventions: Inactivity, Sitting Pharmacological Interventions: Block, PRN Medication PQRS Narrative: Smoking Status Never smoker Hx Alcohol Use (MH) No Home Medications: Ambulatory Orders Aspirin EC [Ecotrin Low Dose] 81 mg PO DAILY 09/01/17 Cholecalciferol [Vitamin D3 (25 Mcg = 1000 Iu)] 1,000 unit PO DAILY 09/01/17 Melatonin [Melatonin ER] 10 mg PO HS 09/01/17 glipiZIDE [Glucotrol XL] 10 mg PO QAM 09/01/17 Atorvastatin [Lipitor] 10 mg PO QAM 01/05/20 Gabapentin 600 mg PO HS 01/05/20 Pioglitazone [Actos] 45 mg PO QAM 01/05/20 Losartan Potassium [Cozaar] 100 mg PO QAM 10/28/21 Verapamil [Isoptin] 80 mg PO TID 10/28/21 Metoprolol Succinate (ER) [Toprol Xl] 25 mg PO HS 06/22/22 Ascorbic Acid [Vitamin C] 1,000 mg PO DAILY 06/25/22 Calcium Carbonate [Calcium] 600 mg PO BID 06/25/22 Ferrous Sulfate [Feosol] 325 mg PO DAILY 06/25/22 Magnesium Oxide [Magnesium] 500 mg PO DAILY 06/25/22 Potassium Gluconate 99 mg PO DAILY 06/25/22 Vits A,C,E/Lutein/Minerals [Ocuvite with Lutein Tablet] 1 each PO DAILY 06/25/22 Diclofenac Sodium Gel [Voltaren Gel] 100 gm TOPICAL TID 30 Days #100 gm 07/14/22 Controlled Substance Measures - Controlled Substance Measures Is patient prescribed a controlled substance at discharge?: No
== END ==
LOC: PNWHC3 09:56
PROVIDERS: ATTEND Specialist
DX: M51.36 Other intervertebral disc degeneration, lumbar region (principal); M47.816 Spondylosis without myelopathy or radiculopathy, lumbar region; G89.29 Other chronic pain; Z79.82 Long term (current) use of aspirin
CPT/HCPCS: 99211

== ENCOUNTER → 2022-10-21 | Outpatient (CLI) | payer MEDICARE, OTHER ==
[2022-10-21 08:06] VITALS: BP 137/70; PULSE 67; RESP 16; TEMP 99
--- NOTE | 2022-10-21 14:30 | P.PAINPG ---
PQRS Measure Charge Sheet Comment: A 77 yr old female with a history of severe and chronic LBP secondary to lumbar DDD and spondylosis with facet arthropathy without myelopathy presents today for evaluation. Pain level is provoked at 10 /10 in intensity, constant, localized in the lumbar spine, achy in character w radiation towards the abdo men. Pain is provoked w weight bearing activity. Pain is alleviated w PT x 4-5 wks in Sep 2022 integrated w massage, use of a walker for ambulatory assistance, heat, ice, medications, repositioning and rest. Interventional pain procedures completed include BL RFA L3-L5 (Jun 2022), QUETA L3-4 x1, L4-5 x1 Patient is currently on Tyl Patient denies any side effects of the medication(s), denies excessive drowsiness or sleepiness, denies suicidal ideation and reports that the current pain medication is helping to control the pain and improve activities of daily living. Patient denies any motor or sensory deficits. Patient denies any fever or night sweats, denies any change in the bowel movements or urination. Physical Examination: -Constitutional: Cooperative. Not in acute distress . - Neurologic: Cranial nerve II to XII intact. No focal neurological deficits. - Psychatric: Alert & oriented x 3. Matching mood & appropriate affect. Judgment and insight intact. - Musculoskeletal: Cervical spine: Muscle bulk/ tone/ strength in the bilateral upper extremities normal Vertebral body tenderness to palpation over Spurling test positive Distraction test positive Facet loading test positive TTP Thoracic spine Muscle bulk / tone/ strength in the bilateral paraspinal muscles normal Vertebral body tender to palpation over Facet loading test positive TTP Lumbar spine: Motor bulk/ tone/ strength lower extremities , thigh and legs : 5/5 Deep tendon reflexes : Normal Knee Jerk. Normal Ankle Jerk . Vertebral body tenderness to palpation over L1 Knott test positive Lumbar Facet Loading Test positive Straight Leg Raise: positive at 30 degrees right side/ left side Gaenslen's Test positive Sacral spine : Severe tenderness over the Sacroiliac joint: right side / left side Range of motion: Flexion of the lumbar spine <60 degrees Range of motion: Extension of the lumbar spine <20 degrees Gaenslen's Test positive right side / left side Radha test: positive right side / left side Thigh Thrust Test positive right side / left side Sacral Thrust Test positive right side / left side Assessment and plan: Chronic LBP secondary to lumbar DDD, spondylosis with facet arthropathy without myelopathy Recommendation of QUETA T12-L1. May need a series of injections for optimal pain relief. Risks, benefits of procedure discussed and pt verbalized understanding. Protocol for discontinuation / continuation of medications yudy procedure discussed. Medication management. Tylenol #3 #18 w 1 RF. Use, side effects, adverse reactions and safe storage discussed. Pt acknowledged understanding. All questions answered. I have spent less than 30 minutes on patient care today. Dr Moseley was available by phone for the evaluation of this patient. The time was used to review the medical records including relevant urine studies and Prescription history (MAPs), review of the available imaging, evaluation and examination of the patient, coordination of care with the medical staff and if applicable referring physicians, as well as creation of the medical record - Pain Location Bilateral Lower Back Non-Pharmacological Interventions: Heat, Ice, Inactivity, Physical Therapy Pharmacological Interventions: Block, Epidural, PRN Medication, Scheduled Medication, Topical Medication PQRS Narrative: Smoking Status Never smoker Hx Alcohol Use (MH) No Home Medications: Ambulatory Orders Aspirin EC [Ecotrin Low Dose] 81 mg PO DAILY 09/01/17 Cholecalciferol [Vitamin D3 (25 Mcg = 1000 Iu)] 1,000 unit PO DAILY 09/01/17 Melatonin [Melatonin ER] 10 mg PO HS 09/01/17 glipiZIDE [Glucotrol XL] 10 mg PO QAM 09/01/17 Atorvastatin [Lipitor] 10 mg PO QAM 01/05/20 Gabapentin 600 mg PO HS 01/05/20 Pioglitazone [Actos] 45 mg PO QAM 01/05/20 Losartan Potassium [Cozaar] 100 mg PO QAM 10/28/21 Verapamil [Isoptin] 80 mg PO TID 10/28/21 Metoprolol Succinate (ER) [Toprol Xl] 25 mg PO HS 06/22/22 Ascorbic Acid [Vitamin C] 1,000 mg PO DAILY 06/25/22 Ferrous Sulfate [Feosol] 325 mg PO DAILY 06/25/22 Magnesium Oxide [Magnesium] 500 mg PO DAILY 06/25/22 Potassium Gluconate 99 mg PO DAILY 06/25/22 Acetaminophen-Codeine 300-30mg [Tylenol w/codeine #3] 1 tab PO Q4H PRN 3 Days #18 tablet 10/21/22 Controlled Substance Measures - Controlled Substance Measures Is patient prescribed a controlled substance at discharge?: Yes When asked, does pt state using other controlled substances?: No If prescribed controlled substance>3 days was MAPS reviewed?: Prescribed <3 Days
== END ==
LOC: PNWHC3 07:17
PROVIDERS: ATTEND Specialist
DX: M51.36 Other intervertebral disc degeneration, lumbar region (principal); M47.816 Spondylosis without myelopathy or radiculopathy, lumbar region; G89.29 Other chronic pain; Z79.82 Long term (current) use of aspirin
CPT/HCPCS: 99211

== ENCOUNTER 2022-11-04 05:59 | Day surgery (SDC) | payer MEDICARE, OTHER ==
[2022-11-01 09:31] VITALS: BMI 39.7
[~2022-11-04 05:59] MED LIST changes: -LIDOCAINE 1% (10MG/ML) FOR IV START INTRADERMA PRN
[2022-11-04 06:24] VITALS: TEMP 97.3
[2022-11-04 06:31] LABS: Glucose,Whole Blood 89 mg/dL (70-110)
[2022-11-04] MEDS ORDERED: IOPAMIDOL M200 10 ML VIAL ONE (07:14)
[2022-11-04] MEDS ORDERED: ROPIVACAINE 5MG/ML 20ML VIAL ONE (07:14)
[2022-11-04] MEDS ORDERED: TRIAMCINOLONE ACETONIDE 40 MG/ML 1 ML VIAL ONE (07:14)
--- NOTE | 2022-11-04 07:26 | P.PCN ---
Description of Procedure: PREOPERATIVE DIAGNOSIS: 1- Lumber Degenerative Disc Diseases. POSTOPERATIVE DIAGNOSIS: 1-Lumbar Degenerative Disc Diseases PROCEDURE 1. Lumbar epidural steroid injection under fluoroscopic guidance at the T12-L1 level. 2. Lumbar epidurogram. ANESTHESIA: Local with 1% lidocaine EBL: Minimal PROCEDURE INDICATION: The patient with low back pain and radiculitis symptoms unresponsive to conservative treatment. Fluoroscopy was used to optimize visualization of the needle placement and to maximize safety. PROCEDURE DESCRIPTION / TECHNIQUE: The patient was seen and identified in the preoperative area. Risks, benefits, complications including but not limited to infections ,bleeding ,allergic reaction to the medications ,nerve damage and not complete pain relief , and alternatives were discussed with the patient. The patient agreed to proceed with the procedure and signed the consent. IV was started, and vital signs were stable. Patient was taken to the OR and time out was completed. The patient was placed in the prone position on procedure table and a pillow was placed under the abdomen to reduce lumbar lordosis. The lumbosacral area was prepped and draped in the usual sterile fashion with ChloraPrep.Patient was closely monitored during the procedure. Conscious sedation was used during the procedure to decrease patients anxiety. Vital signs were monitered during the entire procedure. Using anterior-posterior fluoroscopy, the T12-L1 interlaminar space was identified and the skin over this site was marked and then infiltrated with 1% lidocaine subcutaneously. Subsequently, a 20-gauge Tuohy epidural needle was inserted and advanced toward the epidural space using the Loss of resistance to air technique and guided by AP and lateral fluoroscopy. The correct needle position in the epidural space was verified with the injection of 1 mL of the water soluble contrast dye Omnipaque 180 contrast and observing an excellent epidurogram with the epidural spread of the dye, after negative aspiration for blood and CSF and in the absence of paresthesias. Again after negative aspiration, a 8 ml mixture containing 40 mg of Kenalog and 5 ml of preservative free Normal Saline, and 2 ml of preservative free Ropivacaine 0.5% solution was injected and a washout of epidurogram was seen. Needle was withdrawn intact, skin was cleansed, and bandages were applied. patient tolerated procedure well and was transferred to PACU in stable condition.A copy of the needle placement picture was saved to the fluoroscopy machine. Of note the patient has significant scoliosis of the thoracolumbar junction and I had to tilt the C-arm to the right oblique position by about 20 to get a true AP view of the T12-L1 level. COMPLICATIONS: None
[2022-11-04 07:29] VITALS: RESP 18
[2022-11-04 07:46] VITALS: BP 148/75; PULSE 63
--- NOTE | 2022-11-04 07:46 | FL ---
Fluoroscopy History: Lumbar Epid Inj Lumbar Epid inj 8sec fluoro time 0.14432 DAP
== END 2022-11-04 07:50 | disposition home or self-care (01) ==
LOC: ORPAIN 05:59
PROVIDERS: ATTEND Anesthesiology
DX: M51.16 Intervertebral disc disorders with radiculopathy, lumbar region (principal); E11.9 Type 2 diabetes mellitus without complications; I10 Essential (primary) hypertension; E66.9 Obesity, unspecified; Z68.1 Body mass index [BMI] 19.9 or less, adult
CPT/HCPCS: 62323; J3301; Q9966; J2795

== ENCOUNTER → 2022-12-20 | Outpatient (CLI) | payer MEDICARE, OTHER ==
[2022-12-20 11:33] VITALS: BP 141/61; PULSE 97; RESP 15; TEMP 98.2
--- NOTE | 2022-12-20 14:37 | P.PAINPG ---
PQRS Measure Charge Sheet Comment: A 77 yr old female with a history of severe and chronic LBP secondary to lumbar DDD and spondylosis with facet arthropathy without myelopathy presents today for evaluation s/p QUETA T12-L1 #1. Pt states she experienced % pain relief x wks s/p procedure. Pain level is provoked at /10 in intensity, constant, l ocalized in the lumbar spine, achy in character w radiation towards the abdomen. Pain is provoked w weight bearing activity. Pain is alleviated w PT x 4-5 wks in Sep 2022 integrated w massage, use of a walker for ambulatory assistance, heat, ice, medications, repositioning and rest. Interventional pain procedures completed include BL RFA L3-L5 (Jun 2022), QUETA L3-4 x1, L4-5 x1, QUETA T12-L1 x1 Patient is currently on Tyl Patient denies any side effects of the medication(s), denies excessive drowsiness or sleepiness, denies suicidal ideation and reports that the current pain medication is helping to control the pain and improve activities of daily living. Patient denies any motor or sensory deficits. Patient denies any fever or night sweats, denies any change in the bowel movements or urination. Physical Examination: -Constitutional: Cooperative. Not in acute distress . - Neurologic: Cranial nerve II to XII intact. No focal neurological deficits. - Psychatric: Alert & oriented x 3. Matching mood & appropriate affect. Judgment and insight intact. - Musculoskeletal: Cervical spine: Muscle bulk/ tone/ strength in the bilateral upper extremities normal Vertebral body tenderness to palpation over Spurling test positive Distraction test positive Facet loading test positive TTP Thoracic spine Muscle bulk / tone/ strength in the bilateral paraspinal muscles normal Vertebral body tender to palpation over Facet loading test positive TTP Lumbar spine: Motor bulk/ tone/ strength lower extremities , thigh and legs : 5/5 Deep tendon reflexes : Normal Knee Jerk. Normal Ankle Jerk . Vertebral body tenderness to palpation Knott test positive Lumbar Facet Loading Test positive Straight Leg Raise: positive at 30 degrees right side/ left side Gaenslen's Test positive Sacral spine : Severe tenderness over the Sacroiliac joint: right side / left side Range of motion: Flexion of the lumbar spine <60 degrees Range of motion: Extension of the lumbar spine <20 degrees Gaenslen's Test positive right side / left side Radha test: positive right side / left side Thigh Thrust Test positive right side / left side Sacral Thrust Test positive right side / left side Assessment and plan: Chronic LBP secondary to lumbar DDD, spondylosis with facet arthropathy without myelopathy Will manage residual pain and may return to clinic on an as needed basis. All questions answered. I have spent less than 30 minutes on patient care today. Dr Moseley was available by phone for the evaluation of this patient. The time was used to review the medical records including relevant urine studies and Prescription history (MAPs), review of the available imaging, evaluation and examination of the patient, coordination of care with the medical staff and if applicable referring physicians, as well as creation of the medical record PQRS Narrative: Smoking Status Never smoker Hx Alcohol Use (MH) No Home Medications: Ambulatory Orders Aspirin EC [Ecotrin Low Dose] 81 mg PO DAILY 09/01/17 Cholecalciferol [Vitamin D3 (25 Mcg = 1000 Iu)] 1,000 unit PO DAILY 09/01/17 Melatonin [Melatonin ER] 10 mg PO HS 09/01/17 glipiZIDE [Glucotrol XL] 10 mg PO QAM 09/01/17 Atorvastatin [Lipitor] 10 mg PO QAM 01/05/20 Gabapentin 600 mg PO HS 01/05/20 Pioglitazone [Actos] 45 mg PO QAM 01/05/20 Losartan Potassium [Cozaar] 100 mg PO QAM 10/28/21 Verapamil [Isoptin] 80 mg PO TID 10/28/21 Metoprolol Succinate (ER) [Toprol Xl] 25 mg PO HS 06/22/22 Ascorbic Acid [Vitamin C] 1,000 mg PO DAILY 06/25/22 Ferrous Sulfate [Feosol] 325 mg PO DAILY 06/25/22 Magnesium Oxide [Magnesium] 500 mg PO DAILY 06/25/22 Potassium Gluconate 99 mg PO DAILY 06/25/22 Acetaminophen-Codeine 300-30mg [Tylenol w/codeine #3] 1 tab PO Q4H PRN 3 Days #18 tablet 10/21/22 Controlled Substance Measures - Controlled Substance Measures Is patient prescribed a controlled substance at discharge?: No
== END ==
LOC: PNWHC3 08:56
PROVIDERS: ATTEND Specialist
DX: M51.36 Other intervertebral disc degeneration, lumbar region (principal); M47.816 Spondylosis without myelopathy or radiculopathy, lumbar region; G89.29 Other chronic pain; Z79.82 Long term (current) use of aspirin
CPT/HCPCS: 99211

== ENCOUNTER → 2023-08-15 | Outpatient (CLI) | payer MEDICARE, OTHER ==
[2023-08-15 13:26] VITALS: BP 165/72; PULSE 60; RESP 16; TEMP 98
--- NOTE | 2023-08-15 14:40 | P.PAINPG ---
PQRS Measure Charge Sheet Comment: A 78 yr old female with a history of severe and chronic LBP secondary to lumbar DDD and spondylosis with facet arthropathy without myelopathy presents today for evaluation. Pt underwent a BL RFA L3-L5 in Jun 2022 where she experienced 75% pain relief x 10 mo s/p procedure. Pain level is provoked at 6 /10 in intensity, intermittent, predominantly axial, localized in the lumbar spine, achy in character w occasional radiation towards the abdomen. Pain is provoked w weight bearing activity. Pain is alleviated w PT x 4-5 wks in Sep 2022 integrated w massage, use of a walker for ambulatory assistance, heat, ice, medications, repositioning and rest. Oswestry axial score of 33. Interventional pain procedures completed include BL RFA L3-L5 (Jun 2022), QUETA L3-4 x1, L4-5 x1, QUETA T12-L1 x1 Patient is currently on Tyl Patient denies any side effects of the medication(s), denies excessive drowsiness or sleepiness, denies suicidal ideation and reports that the current pain medication is helping to control the pain and improve activities of daily living. Patient denies any motor or sensory deficits. Patient denies any fever or night sweats, denies any change in the bowel movements or urination. Physical Examination: -Constitutional: Cooperative. Not in acute distress . - Neurologic: Cranial nerve II to XII intact. No focal neurological deficits. - Psychatric: Alert & oriented x 3. Matching mood & appropriate affect. Judgment and insight intact. - Musculoskeletal: Cervical spine: Muscle bulk/ tone/ strength in the bilateral upper extremities normal Vertebral body tenderness to palpation over Spurling test positive Distraction test positive Facet loading test positive TTP Thoracic spine Muscle bulk / tone/ strength in the bilateral paraspinal muscles normal Vertebral body tender to palpation over Facet loading test positive TTP Lumbar spine: Motor bulk/ tone/ strength lower extremities , thigh and legs : 5/5 Deep tendon reflexes : Normal Knee Jerk. Normal Ankle Jerk . Vertebral body tenderness to palpation Knott test positive Lumbar Facet Loading Test positive BL L4-L5, L5-S1 Straight Leg Raise: positive at 30 degrees right side/ left side Gaenslen's Test positive Sacral spine : Severe tenderness over the Sacroiliac joint: right side / left side Range of motion: Flexion of the lumbar spine <60 degrees Range of motion: Extension of the lumbar spine <20 degrees Gaenslen's Test positive right side / left side Radha test: positive right side / left side Thigh Thrust Test positive right side / left side Sacral Thrust Test positive right side / left side Assessment and plan: Chronic LBP secondary to lumbar DDD, spondylosis with facet arthropathy without myelopathy Recommendation of BL RFA L3-L5. Pt exhibited substantial pain relief w prior BL RFA lumbar spine from Jun 2022. Risks, benefits of procedure discussed and pt verbalized understanding. Protocol for discontinuation/ continuation of medications yudy procedure discussed. Minimal anesthesia including Fentanyl and Versed if clinically indicated. All questions answered. I have spent less than 30 minutes on patient care today. Dr Moseley was available by phone for the evaluation of this patient. The time was used to review the medical records including relevant urine studies and Prescription history (MAPs), review of the available imaging, evaluation and examination of the patient, coordination of care with the medical staff and if applicable referring physicians, as well as creation of the medical record PQRS Narrative: Smoking Status Never smoker Hx Alcohol Use (MH) No Home Medications: Ambulatory Orders Aspirin EC [Ecotrin Low Dose] 81 mg PO DAILY 09/01/17 Cholecalciferol [Vitamin D3 (25 Mcg = 1000 Iu)] 1,000 unit PO DAILY 09/01/17 Melatonin [Melatonin ER] 10 mg PO HS 09/01/17 glipiZIDE [Glucotrol XL] 10 mg PO QAM 09/01/17 Atorvastatin [Lipitor] 10 mg PO QAM 01/05/20 Gabapentin 600 mg PO HS 01/05/20 Pioglitazone [Actos] 45 mg PO QAM 01/05/20 Losartan Potassium [Cozaar] 100 mg PO QAM 10/28/21 Verapamil [Isoptin] 80 mg PO TID 10/28/21 Metoprolol Succinate (ER) [Toprol Xl] 25 mg PO HS 06/22/22 Ascorbic Acid [Vitamin C] 1,000 mg PO DAILY 06/25/22 Ferrous Sulfate [Feosol] 325 mg PO DAILY 06/25/22 Magnesium Oxide [Magnesium] 500 mg PO DAILY 06/25/22 Potassium Gluconate 99 mg PO DAILY 06/25/22 Acetaminophen-Codeine 300-30mg [Tylenol w/codeine #3] 1 tab PO Q4H PRN 3 Days #18 tablet 10/21/22 Controlled Substance Measures - Controlled Substance Measures Is patient prescribed a controlled substance at discharge?: No
== END ==
LOC: PNWHC3 08:53
PROVIDERS: ATTEND Specialist
DX: M51.37 Other intervertebral disc degeneration, lumbosacral region (principal); M47.817 Spondylosis without myelopathy or radiculopathy, lumbosacral region
CPT/HCPCS: 99211

== ENCOUNTER 2023-10-11 08:01 | Day surgery (SDC) | payer MEDICARE, OTHER ==
[2023-10-11 09:21] VITALS: TEMP 97.2
[2023-10-11] MEDS: LACTATED RINGERS 1,000 ML IV ONE (09:21)
[2023-10-11] MEDS: LACTATED RINGERS 1,000 ML IV SCH (09:21)
[2023-10-11 09:22] LABS: Glucose,Whole Blood 115 mg/dL (70-110)
[2023-10-11] MEDS ORDERED: MIDAZOLAM 2 MG/2 ML VIAL ONE (10:00)
[2023-10-11] MEDS ORDERED: ROPIVACAINE 5MG/ML 20ML VIAL ONE (10:00)
[2023-10-11] MEDS ORDERED: fentaNYL (PF) 50 MCG/ML 2 ML AMP ONE (10:00)
[2023-10-11] MEDS: IV FLUID CONTINUATION 1,000 ML IV ONE (10:49)
[2023-10-11 10:53] VITALS: RESP 18
--- NOTE | 2023-10-11 10:55 | P.PCN ---
Description of Procedure: Preprocedure diagnosis. 1. Lumbar spondylosis with facet joint arthropathy without myelopathy. 2. Lumbar degenerative disc disease. Procedure diagnosis. 1. Lumbar spondylosis with facet joint arthropathy without myelopathy. Space 2. Lumbar degenerative disc disease. Procedure.Bilateral radiofrequency thermocoagulation L3, L4 and L5 medial branch, with fluoroscopic guidance (fluoroscopy images are available in the radiology department) (to Denervate the facet joint at bilateral L4- 5 and L5-S1 levels) Anesthesia. Moderate sedation with intravenous Versed 2 mg and fentanyl 100 g and local infiltration with Lidocaine. Continuous pulse OX,BP,EKG and verbal communication was maintained with patient. EBL minimal. Procedure indication. The patient with low back pain secondary to lumbar facet arthropathy who he had more than 50% relief of her pain with previous diagnostic lumbar medial branch block with local anesthetics.The patient was seen and identified in the preoperative area. Risks: Benefits, complications, including but not limited to risk of infection, bleeding, ALLERGIC reaction to the medications and no complete pain relief and alternatives were discussed with the patient, the patient admitted to proceed with the procedure and signed the consent. Procedure description/technique. Patient was taken to the OR and timeout was completed. The patient was placed in prone position on the procedure table. The lumbar area was prepped and draped in the usual sterile fashion. After injecting 5 ml of 1% Lidocaine subcutaneously,using AP and then oblique, lateral view of fluoroscopy, 18-gauge 100 mm radiofrequency cannula with a 10 mm active tip was advanced and guided by fluoroscopy at the junction of supirior articular process with RIGHT ala of the sacrum, transverse process of L4&L5. Each site then underwent positive sensory testing with 50 Hz and 0-1 V and negative motor testing at 2.5 Hz and 0-3 V with local stimulation but no radicular symptoms down the leg. Thereafter each sites underwent radiofrequency thermocoagulation at 80C for 90 seconds after injecting 1 mL of preservative- free 0.5% ropivacaine. Repeat radiofrequency ablation was done at each points after rotating the needle 180 with same setting. This same procedure was repeated twice on the LEFT side at the junction of superior articular process with ala of sacrum,transverse process of L4, L5 with the same settings after positive sensory,negative motor stimulation and infiltration of 1.0 ml 5% Ropivacaine at each site . RF needles were taken out. At the end of the procedure the skin was cleansed and Band-Aids were applied. Disposition patient tolerated the procedure well. No complication. She was placed in supine position and transferred to the recovery area in stable condition for observation and was discharged home from recovery room after meeting discharge criteria. Discharge instructions given to the patient by the staff. The patient were examined prior to discharge the patient will schedule a follow-up in the clinic in 2-4 weeks.
[2023-10-11 11:03] VITALS: BP 167/78; PULSE 65
--- NOTE | 2023-10-11 12:32 | FL ---
EXAMINATION TYPE: FL guided pain mgmt statistic Intraoperative/procedural fluoroscopic services were provided. Total fluoroscopy time is 65.5 seconds with a total of 5 submitted images to PACS. Please s ee the operative/procedural note for further details. DAP: [id number] mGym2
== END 2023-10-11 11:22 | disposition home or self-care (01) ==
LOC: ORPAIN 08:01
PROVIDERS: ATTEND Pain Medicine Interventional Pain Medicine
DX: M47.816 Spondylosis without myelopathy or radiculopathy, lumbar region (principal); M51.36 Other intervertebral disc degeneration, lumbar region; Z79.82 Long term (current) use of aspirin
CPT/HCPCS: 64635; 64636 ×2; 99152; 99153; J2250; J3010; J2795

== ENCOUNTER → 2023-10-31 | Outpatient (CLI) | payer MEDICARE, OTHER | LOC: PNWHC3 10:15 | PROVIDERS: ATTEND Specialist | DX: M47.26 Other spondylosis with radiculopathy, lumbar region (principal) | CPT/HCPCS: 99211 ==

== ENCOUNTER 2024-06-15 09:46 | Emergency (ER) | payer MEDICARE, OTHER ==
[2024-06-15 09:54] LABS: Glucose,Whole Blood 123 mg/dL (70-110)
--- NOTE | 2024-06-15 10:18 | ED ---
General Adult HPI - General Chief complaint: Altered Mental Status Stated complaint: hypoglycemia Time Seen by Provider: 06/15/24 09:48 Source: patient, EMS, RN notes reviewed Mode of arrival: EMS Limitations: no limitations - History of Present Illness Initial comments: Patient is an 79-year-old female presenting to the emergency department with concern for altered mental status.. Patient unclear what happened.ow what happened and next thing she knew she was in an ambulance. Patient has no complaints at this time and states she feels fine. No chest pain or dyspnea. No headache or confusion. No weakness. No history of similar symptoms previo usly. EMS reports that patient had hypoglycemia and did provide glucose with resolution of symptoms. - Related Data Home Medications Medication Instructions Recorded Confirmed Aspirin EC [Ecotrin Low Dose] 81 mg PO DAILY 09/01/17 06/15/24 Melatonin [Melatonin Tr] 10 mg PO HS 09/01/17 06/15/24 glipiZIDE [Glucotrol XL] 10 mg PO DAILY 09/01/17 06/15/24 Gabapentin 600 mg PO HS 01/05/20 06/15/24 Losartan Potassium [Cozaar] 100 mg PO DAILY 10/28/21 06/15/24 Verapamil [Isoptin] 80 mg PO TID 10/28/21 06/15/24 Metoprolol Succinate (ER) [Toprol 25 mg PO HS 06/22/22 06/15/24 Xl] Ascorbic Acid [Vitamin C] 1,000 mg PO DAILY 06/25/22 06/15/24 Ferrous Sulfate [Feosol] 325 mg PO DAILY 06/25/22 06/15/24 Magnesium Oxide [Magnesium] 500 mg PO DAILY 06/25/22 06/15/24 Potassium Gluconate 99 mg PO DAILY 06/25/22 06/15/24 Atorvastatin [Lipitor] 20 mg PO DAILY 06/15/24 06/15/24 Calcium Carbonate [Calcium] 600 mg PO BID 06/15/24 06/15/24 Cholecalciferol [Vitamin D3 (25 25 mcg PO DAILY 06/15/24 06/15/24 Mcg = 1000 Iu)] Mv-Mn/Om3/Dha/Epa/Fish/Lut/Celine 1 cap PO DAILY 06/15/24 06/15/24 [Ocuvite Adult 50 Plus Softgel] Pioglitazone [Actos] 45 mg PO DAILY 06/15/24 06/15/24 Allergies Allergy/AdvReac Type Severity Reaction Status Date / Time No Known Allergies Allergy Verified 06/15/24 10:36 Review of Systems ROS Statement: Those systems with pertinent positive or pertinent negative responses have been documented in the HPI. ROS Other: All systems not noted in ROS Statement are negative. Constitutional: Denies: fever Eyes: Denies: eye pain ENT: Denies: ear pain Respiratory: Denies: cough, dyspnea Cardiovascular: Denies: chest pain Musculoskeletal: Denies: back pain Neurological: Denies: headache, weakness Past Medical History Past Medical History: Diabetes Mellitus, Hyperlipidemia, Hypertension, Osteoart hritis (OA) Additional Past Medical History / Comment(s): Hx. of irregular heart rate. History of Any Multi-Drug Resistant Organisms: None Reported Past Surgical History: Joint Replacement, Orthopedic Surgery, Tubal Ligation Additional Past Surgical History / Comment(s): kitty. knee replacements, pain procedures. Past Anesthesia/Blood Transfusion Reactions: No Reported Reaction Past Psychological History: No Psychological Hx Reported Smoking Status: Never smoker Past Alcohol Use History: None Reported Past Drug Use History: None Reported - Past Family History Mother Family Medical History: No Reported History General Exam Limitations: no limitations General appearance: alert, in no apparent distress Head exam: Present: normocephalic Eye exam: Present: normal appearance, PERRL, EOMI Neck exam: Present: normal inspection Respiratory exam: Present: normal lung sounds bilaterally Cardiovascular Exam: Present: regular rate, normal rhythm, systolic murmur Expanded Peripheral pulses: 2+: Radial (R), Radial (L), Dorsalis Pedis (R), Dorsalis Pedis (L) GI/Abdominal exam: Present: soft. Absent: tenderness Extremities exam: Present: normal inspection. Absent: pedal edema, calf tenderness Neurological exam: Present: alert, oriented X3, CN II-XII intact, normal gait. Absent: motor sensory deficit Expanded Neurological exam: Present: protecting the airway Patient oriented to: Present: person, place, time Speech: Present: fluid speech Cranial nerves: EOM's Intact: Normal Motor strength exam: RUE: 5, LUE: 5, RLE: 5, LLE: 5 Eye Response: (4) open spontaneously Motor Response: (6) obeys commands Verbal Response: (5) oriented Psychiatric exam: Present: normal affect, normal mood Skin exam: Present: normal color Course Vital Signs 06/15/24 06/15/24 06/15/24 09:54 11:00 12:00 Temperature 97.7 F Pulse Rate 81 70 68 Respiratory 16 20 17 Rate Blood Pressure 141/84 165/67 156/61 O2 Sat by Pulse 97 100 100 Oximetry EKG Findings - EKG Results: EKG: interpreted by ERMD (First-degree AV block), sinus rhythm, normal axis, nor mal QRS, normal ST/T Medical Decision Making - Medical Decision Making Was pt. sent in by a medical professional or institution (, PA, TUBE BUFFER, urgent care, hospital, or penitentiary...) When possible be specific @ -Patient from assisted living Did you speak to anyone other than the patient for history (EMS, parent, family, police, friend...)? What history was obtained from this source @ -EMS provided history of hypoglycemia Did you review nursing and triage notes (agree or disagree)? Why? @ -I reviewed and agree with nursing and triage notes Were old charts reviewed (outside hosp., previous admission, EMS record, old EKG, old radiological studies, urgent care reports/EKG's, penitentiary records)? Report findings @ -No old charts were reviewed Differential Diagnosis (chest pain, altered mental status, abdominal pain women, abdominal pain men, vaginal bleeding, weakness, fever, dyspnea, syncope, headache, dizziness, GI bleed, back pain, seizure, CVA, palpatations, mental health, musculoskeletal)? @ -Not applicable EKG interpreted by me (3pts min.). @ -Differential Altered Mental Status: Hypoglycemia, DKA, hypercapnia, ETOH, overdose, CO poisoning, trauma, myxedema coma, HTN encephalopathy, infection, encephalitis, psychosis, intercranial hemorrhage, hepatic encephalopathy, meningitis, CVA, this is not meant to be an all-inclusive list X-rays interpreted by me (1pt min.). @ -Chest x-ray shows no acute process CT interpreted by me (1pt min.). @ -CT scan of the brain shows no acute process U/S interpreted by me (1pt. min.). @ -None done What testing was considered but not performed or refused? (CT, X-rays, U/S, labs)? Why? @ -None What meds were considered but not given or refused? Why? @ -None Did you discuss the management of the patient with other professionals (professionals i.e. , PA, TUBE BUFFER, lab, RT, psych nurse, social services manager, veterans services specialist, teacher, tactical response group officer, comp field case manager)? Give summary @ -No Was smoking cessation discussed for >3mins.? @ -No Was critical care preformed (if so, how long)? @ -No Were there social determinants of health that impacted care today? How? (Homelessness, low income, unemployed, alcoholism, drug addiction, transportation, low edu. Level, literacy, decrease access to med. care, [facility], rehab)? @ -No Was there de-escalation of care discussed even if they declined (Discuss DNR or withdrawal of care, Hospice)? DNR status @ -No What co-morbidities impacted this encounter? (DM, HTN, Smoking, COPD, CAD, Cancer, CVA, ARF, Chemo, Hep., AIDS, mental health diagnosis, sleep apnea, morbid obesity)? @ -None Was patient admitted / discharged? Hospital course, mention meds given and route, prescriptions, significant lab abnormalities, going to OR and other pertinent info. @ -Patient reevaluated and still remained symptom-free. Evaluation unremarkable. Patient will be discharged and follow-up primary care physician. Patient and family updated. Undiagnosed new problem with uncertain prognosis? @ -No Drug Therapy requiring intensive monitoring for toxicity (Heparin, Nitro, Insulin, Cardizem)? @ -No Were any procedures done? @ -No Diagnosis/symptom? @ -Hypoglycemia Acute, or Chronic, or Acute on Chronic? @ -Acute Uncomplicated (without systemic symptoms) or Complicated (systemic symptoms)? @ -Default Side effects of treatment? @ -No Exacerbation, Progression, or Severe Exacerbation? @ -No Poses a threat to life or bodily function? How? (Chest pain, USA, ID, pneumonia, PE, COPD, DKA, ARF, appy, cholecystitis, CVA, Diverticulitis, Homicidal, Ju cidal, threat to staff... and all critical care pts) @ -No - Lab Data Result diagrams: 06/15/24 10:17 06/15/24 10:17 Lab Results 06/15/24 06/15/24 06/15/24 Range/Units 09:52 10:17 10:17 WBC 4.0 (3.8-10.6) k/uL RBC 3.80 (3.80-5.40) m/uL Hgb 10.9 L (11.4-16.0) gm/dL Hct 35.5 (34.0-46.0) % MCV 93.5 (80.0-100.0) fL MCH 28.8 (25.0-35.0) pg MCHC 30.8 L (31.0-37.0) g/dL RDW 14.5 (11.5-15.5) % Plt Count 147 L (150-450) k/uL MPV 9.2 Neutrophils % 65 % Lymphocytes % 16 % Monocytes % 8 % Eosinophils % 9 % Basophils % 1 % Neutrophils # 2.6 (1.3-7.7) k/uL Lymphocytes # 0.7 L (1.0-4.8) k/uL Monocytes # 0.3 (0-1.0) k/uL Eosinophils # 0.4 (0-0.7) k/uL Basophils # 0.0 (0-0.2) k/uL Hypochromasia Slight PT 10.4 (10.0-12.5) sec INR 0.9 (<1.2) APTT 25.2 (22.0-30.0) sec D-Dimer 1.32 H (<0.60) mg/L FEU Sodium (137-145) mmol/L Potassium (3.5-5.1) mmol/L Chloride (98-107) mmol/L Carbon Dioxide (22-30) mmol/L Anion Gap mmol/L BUN (7-17) mg/dL Creatinine (0.52-1.04) mg/dL Est GFR (CKD-EPI)AfAm (>60 ml/min/1.73 sqM) Est GFR (CKD-EPI)NonAf (>60 ml/min/1.73 sqM) Glucose (74-99) mg/dL POC Glucose (mg/dL) 123 H (70-110) mg/dL POC Glu [facility] Calcium (8.4-10.2) mg/dL Magnesium (1.6-2.3) mg/dL Total Bilirubin (0.2-1.3) mg/dL AST (14-36) U/L ALT (4-34) U/L Alkaline Phosphatase (38-126) U/L Troponin I (0.000-0.034) ng/mL Total Protein (6.3-8.2) g/dL Albumin (3.5-5.0) g/dL 06/15/24 06/15/24 06/15/24 Range/Units 10:17 10:17 11:15 WBC (3.8-10.6) k/uL RBC (3.80-5.40) m/uL Hgb (11.4-16.0) gm/dL Hct (34.0-46.0) % MCV (80.0-100.0) fL MCH (25.0-35.0) pg MCHC (31.0-37.0) g/dL RDW (11.5-15.5) % Plt Count (150-450) k/uL MPV Neutrophils % % Lymphocytes % % Monocytes % % Eosinophils % % Basophils % % Neutrophils # (1.3-7.7) k/uL Lymphocytes # (1.0-4.8) k/uL Monocytes # (0-1.0) k/uL Eosinophils # (0-0.7) k/uL Basophils # (0-0.2) k/uL Hypochromasia PT (10.0-12.5) sec INR (<1.2) APTT (22.0-30.0) sec D-Dimer (<0.60) mg/L FEU Sodium 141 (137-145) mmol/L Potassium 4.1 (3.5-5.1) mmol/L Chloride 108 H (98-107) mmol/L Carbon Dioxide 25 (22-30) mmol/L Anion Gap 8 mmol/L BUN 21 H (7-17) mg/dL Creatinine 0.99 (0.52-1.04) mg/dL Est GFR (CKD-EPI)AfAm 62 (>60 ml/min/1.73 sqM) Est GFR (CKD-EPI)NonAf 54 (>60 ml/min/1.73 sqM) Glucose 128 H (74-99) mg/dL POC Glucose (mg/dL) 89 (70-110) mg/dL POC Glu Garageman ID Jina Booth Calcium 9.2 (8.4-10.2) mg/dL Magnesium 1.9 (1.6-2.3) mg/dL Total Bilirubin 0.7 (0.2-1.3) mg/dL AST 24 (14-36) U/L ALT 11 (4-34) U/L Alkaline Phosphatase 70 (38-126) U/L Troponin I <0.012 (0.000-0.034) ng/mL Total Protein 6.2 L (6.3-8.2) g/dL Albumin 3.6 (3.5-5.0) g/dL Disposition Clinical Impression: Hypoglycemia Disposition: HOME SELF-CARE Condition: Stable Instructions (If sedation given, give patient instructions): Hypoglycemia in a Person with Diabetes (ED) Additional Instructions: Please check your blood sugar several times daily for the next few days. Please follow-up with your primary care physician in the next couple of days for recheck. Please have your primary care physician check CT results. Return for low blood sugar, passing out, worsening or changing symptoms or any other concerns. Please also follow-up with your nurse transitional as scheduled. Is patient prescribed a controlled substance at d/c from ED?: No Referrals: Mykel Marin DO [Primary Care Provider] - 1-2 days Time of Disposition: 13:57
[2024-06-15 10:34] LABS: Basophils % (A) 1 %; Eosinophils # (A) 0.4 k/uL (0-0.7); Eosinophils % (A) 9 %; HCT 35.5 % (34.0-46.0); HGB 10.9 gm/dL (11.4-16.0); Hypochromasia Slight; Lymphocytes # (A) 0.7 k/uL (1.0-4.8); Lymphocytes % (A) 16 %; MCH 28.8 pg (25.0-35.0); MCHC 30.8 g/dL (31.0-37.0); MCV 93.5 fL (80.0-100.0); Mean Platelet Volume 9.2; Monocytes # (A) 0.3 k/uL (0-1.0); Monocytes % (A) 8 %; Neutrophils # (A) 2.6 k/uL (1.3-7.7); Neutrophils % (A) 65 %; Platelet Count 147 k/uL (150-450); RDW 14.5 % (11.5-15.5)
--- NOTE | 2024-06-15 10:46 | CT ---
EXAMINATION TYPE: CT brain wo con DATE OF EXAM: 06/15/2024 COMPARISON: NONE CLINICAL INDICATION: Female, 79 years old with history of syncope, syncope TECHNIQUE: CT scan of the head is performed without contrast. CT DLP: 1097.8 mGycm. Automated Exposure Control for Dose Reduction was Utilized. FINDINGS: There is no acute intracranial hemorrhage or midline shift identified. There is mild to m oderate diffuse ventricular and sulcal prominence consistent with diffuse age-related cerebral atroph y. There is mild to moderate low-attenuation in the periventricular white matter consistent with chr onic small vessel ischemic change. Suspect old lacunar infarct inferior central left basal ganglia ax ial image 28 . Bilateral aphakia is present. Prominent soft tissue density consistent with cerumen is seen in the deep right external auditory canal. The visualized sinuses are clear. Partial opacific ation of the left mastoid air cells. IMPRESSION: No acute intracranial hemorrhage or midline shift. Possible left-sided mastoiditis, cor relate clinically. [facility], , 06/15/2024 10:43 AM
[2024-06-15 10:47] LABS: INR 0.9 (<1.2); Partial Thromboplastin Time 25.2 sec (22.0-30.0); Prothrombin Time 10.4 sec (10.0-12.5)
[2024-06-15 10:55] LABS: ALT 11 U/L (4-34); AST 24 U/L (14-36); African American GFR (CKD) 62 (>60 ml/min/1.73 sqM); Albumin 3.6 g/dL (3.5-5.0); Alkaline Phosphatase 70 U/L (38-126); Anion Gap 8 mmol/L; Blood Urea Nitrogen 21 mg/dL (7-17); Calcium 9.2 mg/dL (8.4-10.2); Carbon Dioxide 25 mmol/L (22-30); Chloride 108 mmol/L (98-107); Glucose 128 mg/dL (74-99); Magnesium 1.9 mg/dL (1.6-2.3); Non-African American GFR(CKD) 54 (>60 ml/min/1.73 sqM); Potassium 4.1 mmol/L (3.5-5.1); Sodium 141 mmol/L (137-145); Total Bilirubin 0.7 mg/dL (0.2-1.3); Total Protein 6.2 g/dL (6.3-8.2)
[2024-06-15 11:16] LABS: Glucose,Whole Blood 89 mg/dL (70-110)
--- NOTE | 2024-06-15 12:33 | XR ---
EXAMINATION TYPE: XR chest 2V DATE OF EXAM: 06/15/2024 CLINICAL INDICATION: Female, 79 years old with history of syncope, TECHNIQUE: Frontal and lateral views of the chest are obtained. COMPARISON: Chest x-ray January 05, 2020 FINDINGS: There is no focal air space opacity, pleural effusion, or pneumothorax seen. Cardiomegaly redemonstrated. The osseous structures are intact. IMPRESSION: Cardiomegaly without acute pulmonary process. [facility], , 06/15/2024 12:31 PM
--- NOTE | 2024-06-15 13:18 | CT ---
EXAMINATION TYPE: CT angio chest CT DLP: 527.5 mGycm, Automated exposure control for dose reduction was used. DATE OF EXAM: 06/15/2024 1:05 PM COMPARISON: Chest radiograph from same day. CLINICAL INDICATION:Female, 79 years old with history of syncope; ELEVATED D-DIMER TECHNIQUE/CONTRAST: CTA scan of the thorax is performed with IV Contrast, patient injected with 72 mL of Isovue 370, pulm onary embolism protocol. MIP images are created and reviewed. FINDINGS: Pulmonary Artery: There is no evidence for a filling defect within the pulmonary vasculature to sugge st acute pulmonary embolism. Mildly dilated right main pulmonary artery measuring up to 3.0 cm. This can be seen with pulmonary arterial hypertension. Lungs/Pleura: No evidence of focal consolidation, pleural effusion or pneumothorax. Mild bibasilar anderson bsegmental atelectasis. Left upper lobe 3.3 mm pulmonary nodule (series 406, image 48). Right upper l obe 3.0 mm pulmonary nodule (series 406, image 46). Airway: Large airways are patent. Heart: Cardiomegaly is demonstrated.No pericardial effusion. Mild coronary artery calcifications pres ent. Numerous calcifications. Vasculature: No evidence of aortic aneurysm. Mild atherosclerotic calcification of the aorta and its branches. Mediastinum: No evidence of adenopathy. Musculoskeletal: No acute osseous abnormalities. Right shoulder arthropathy. Chronic anterior wedge c ompression deformity of the L1 vertebral body with approximately 50% height loss and 3 mm retropulsio n. Multilevel degenerative disc disease. Soft Tissues: Bilateral breast skin thickening. Mild anasarca. Lower neck: No significant findings. Upper Abdomen: Cholelithiasis. IMPRESSION: 1. No evidence of pulmonary embolism. 2. Couple of pulmonary micronodules measuring less than 4 mm. According to Fleischner criteria, in a low risk patient no follow up is recommended. In a high-risk patient consider optional CT chest in 12 months. 3. Cholelithiasis. 4. Bilateral breast skin thickening with mild anasarca. 5. Chronic anterior wedge compression deformity of the L1 vertebral body. [facility], , 06/15/2024 1:16 PM
[2024-06-15 14:03] VITALS: RESP 17
[2024-06-15 14:22] VITALS: BP 177/60; PULSE 66; TEMP 97.8
== END 2024-06-15 15:17 | disposition home or self-care (01) ==
LOC: EC 09:46
DX: E11.649 Type 2 diabetes mellitus with hypoglycemia without coma (principal)
CPT/HCPCS: 36415; 93005; 85379; 80053; 83735; 84484; 85025; 85610; 85730; 71046; 70450; 71275; 99285; Q9967